=== PATIENT | male | born 1990 | race Caucasian/White ===

== ENCOUNTER → 2020-03-21 08:43 | Outpatient (CLI) | payer BC, SELFPAY ==
[2020-03-21 09:42] LABS: Add Manual Diff / Slide Review NO; Basophils Absolute Auto 100 /uL (0-100); Basophils Percent Auto 0.9 % (0-2); Eosinophils Absolute Auto 200 /uL (0-450); Eosinophils Percent Auto 3.5 % (2-4); Hematocrit 43.3 % (41-53); Hemoglobin 15.2 g/dL (13.5-17.5); Lymphocytes Absolute Auto 1100 /uL (1100-4500); Lymphocytes Percent Auto 18.5 % (25-40); Mean Corpuscular Hemoglobin 37.6 PG (26-34); Mean Corpuscular Volume 107.4 fL (80-100); Monocytes Absolute Auto 700 /uL (0-900); Monocytes Percent Auto 11.7 % (3-14); Neutrophils Absolute Auto 3900 /uL (1500-7000); Neutrophils Percent Auto 65.4 % (50-75); Platelet Count 156 X10^3/uL (150-400); Red Blood Cell Count 4.04 X10^6/uL (4.5-5.9); Red Cell Distribution Width 13.5 % (11.6-14.8); White Blood Cell Count 5.9 X10^3/uL (4.5-11.0)
[2020-03-21 10:09] LABS: BUN Creatinine Ratio 12.2 (6-22); Blood Urea Nitrogen 10 mg/dL (9-20); Calcium 9.3 mg/dL (8.4-10.2); Carbon Dioxide 30 mmol/L (22-32); Chloride 101 mmol/L (98-107); Cholesterol 219 mg/dL (140-199); Estimated Glomerular Filt Rate > 60.0 mL/min (>60); Glucose 102 mg/dL (70-100); HDL Cholesterol 70 mg/dL (40-60); HEMOLYSIS < 15 (0-50); LDL Cholesterol Calculated 72 mg/dL (<100); Potassium 3.9 mmol/L (3.4-5.1); Sodium 139 mmol/L (137-145); Triglycerides 386 mg/dL (35-150)
[2020-03-21 10:27] LABS: Free T3, Triiodothyronine Free 3.93 pg/mL (2.77-5.27); Free T4, Direct Thyroxine 0.91 ng/dL (0.78-2.19)
[2020-03-21 10:41] LABS: Thyroid Stimulating Hormone 2.36 uIU/mL (0.47-4.68)
== END ==
PROVIDERS: PCP Family Medicine; Referring Provider Family Medicine; Visit Provider Family Medicine
DX: R53.83 Other fatigue (principal); R63.5 Abnormal weight gain; Z82.49 Family history of ischemic heart disease and other diseases of the circulatory system; Z83.49 Family history of other endocrine, nutritional and metabolic diseases
CPT/HCPCS: 36415; 80048; 80061; 84439; 84443; 84481; 85025

== ENCOUNTER → 2021-04-03 11:36 | Outpatient (CLI) | payer OTHER, SELFPAY ==
--- NOTE | 2021-04-03 11:40 | DI.RAD.S_ITS ---
PROCEDURE: XR CHEST 2V INDICATIONS: tachycardia TECHNIQUE: 2 views of the chest were acquired. COMPARISON: None. FINDINGS: Surgical changes and devices: None. Lungs and pleura: Lungs are clear. No pleural effusions or pneumothorax. Mediastinum: Mediastinal contours are normal. Heart size is normal. Bones and chest wall: No suspicious bony abnormalities. Soft tissues appear unremarkable. IMPRESSION: No acute cardiopulmonary abnormality. Dictated by: Jase Guaman M.D. on 04/03/2021 at 12:03 Approved by: Jase Guaman M.D. on 04/03/2021 at 12:04
[2021-04-03 13:15] LABS: Add Manual Diff / Slide Review NO; Basophils Absolute Auto 0 /uL (0-100); Basophils Percent Auto 0.3 % (0-2); Eosinophils Absolute Auto 100 /uL (0-450); Eosinophils Percent Auto 0.5 % (2-4); Hemoglobin 9.1 g/dL (13.5-17.5); Lymphocytes Absolute Auto 1400 /uL (1100-4500); Lymphocytes Percent Auto 11.9 % (25-40); Mean Corpuscular HGB Conc 33.7 % (30-36); Mean Corpuscular Hemoglobin 39.7 PG (26-34); Mean Corpuscular Volume 117.9 fL (80-100); Monocytes Absolute Auto 1000 /uL (0-900); Monocytes Percent Auto 8.4 % (3-14); Neutrophils Absolute Auto 9300 /uL (1500-7000); Neutrophils Percent Auto 78.9 % (50-75); Platelet Count 218 X10^3/uL (150-400); Red Blood Cell Count 2.29 X10^6/uL (4.5-5.9); Red Cell Distribution Width 17.4 % (11.6-14.8); White Blood Cell Count 11.7 X10^3/uL (4.5-11.0)
[2021-04-03 13:20] LABS: Hemoglobin A1C% w Est Avg Glu 5.2 % (4.0-6.0)
[2021-04-03 13:49] LABS: Macrocytosis 3+
[2021-04-03 13:50] LABS: Anisocytosis 2+; Creatine Kinase 64 U/L (55-170)
[2021-04-03 14:02] LABS: Troponin I < 0.012 ng/mL (0.01-0.034)
[2021-04-03 14:05] LABS: Alanine Aminotransferase 43 IU/L (<50); Albumin 3.4 g/dL (3.5-5.0); Albumin Globulin Ratio 1.2 (1.0-2.8); Alkaline Phosphatase 275 U/L (38-126); Aspartate Aminotransferase 153 IU/L (17-59); BUN Creatinine Ratio 11.7 (6-22); Bilirubin Total 1.3 mg/dL (0.2-1.3); Blood Urea Nitrogen 7 mg/dL (9-20); Calcium 8.6 mg/dL (8.4-10.2); Carbon Dioxide 25 mmol/L (22-32); Chloride 90 mmol/L (98-107); Cholesterol 141 mg/dL (140-199); Estimated Glomerular Filt Rate > 60.0 mL/min (>60); Globulin 2.8 g/dL (1.7-4.1); Glucose 92 mg/dL (70-100); HDL Cholesterol 27 mg/dL (40-60); HEMOLYSIS < 15 (0-50); LDL Cholesterol Calculated 80 mg/dL (<100); Potassium 4.1 mmol/L (3.4-5.1); Sodium 130 mmol/L (137-145); Total Protein 6.2 g/dL (6.3-8.2); Triglycerides 171 mg/dL (35-150)
[2021-04-03 14:15] LABS: HEMOLYSIS < 15 (0-50); Iron 203 ug/dL (49-181)
[2021-04-03 14:22] LABS: TSH w/ Reflex to FT4 5.95 uIU/mL (0.47-4.68)
[2021-04-03 14:26] LABS: Total Iron Binding Capacity 244 ug/dL (261-462); Transferrin 163 mg/dL (206-381)
[2021-04-03 14:28] LABS: Percent Iron Saturation 83 % (20-50)
[2021-04-03 14:40] LABS: Vitamin B12 Reflex MMA if <400 334 pg/mL (239-931)
[2021-04-03 14:51] LABS: Free T4, Direct Thyroxine 1.43 ng/dL (0.78-2.19)
[2021-04-03 15:24] LABS: Folate 1.5 ng/mL (2.76-20.0)
[2021-04-03 15:52] LABS: Microalbumin Urine Random 3.9 mg/dL (0-1.6)
[2021-04-03 16:27] LABS: Creatinine Urine Random 827.7 mg/dL; Microalbumi Creatinin Ratio Ur 4.7 ug/mg CR (<30)
[2021-04-03 16:49] LABS: Vitamin D 25 Hydroxy (D3) < 12.8 ng/mL (30.0-100.0)
[2021-04-06 16:08] LABS: Methylmalonic Acid,Serum 168 nmol/L (0-378)
== END ==
PROVIDERS: PCP Family Medicine; Referring Provider Family Medicine; Visit Provider Family Medicine
DX: R00.0 Tachycardia, unspecified (principal); E78.1 Pure hyperglyceridemia; R53.83 Other fatigue; R60.0 Localized edema; R63.5 Abnormal weight gain; Z82.49 Family history of ischemic heart disease and other diseases of the circulatory system
CPT/HCPCS: 36415; 71046; 80053; 80061; 82043; 82306; 82550; 82570; 82607; 82746; 83036; 83540; 83550; 83921; 84439; 84443; 84484; 85025

== ENCOUNTER 2021-04-07 23:47 | Emergency (ER) | payer OTHER, SELFPAY ==
[2021-04-07 23:55] VITALS: PULSE 115; O2SAT 97
--- NOTE | 2021-04-07 23:56 | ED.WEAKNESS ---
HPI - Weakness General Chief complaint: Abdominal Pain Stated complaint: abdomin/legs swollen x5 days Time Seen by Provider: 04/07/21 23:51 History of Present Illness HPI Narrative: 30-year-old male daily smoker with history of heavy alcohol abuse presents for evaluation of 40 lb weight gain over the past few weeks to months including worsening swelling in both legs and now his abdomen over the past few days. He is not dizzy nor weak or lightheaded. He denies any chest pain but is becoming short of breath with exertion. He denies any orthopnea,. He had been drinking 8-10 alcoholic drinks daily for quite some time. He saw primary care provider a few days ago was told he needs to stop drinking. He did stop drinking and has had no withdrawal type symptoms. Multiple labs, chest x-ray and echocardiogram were ordered as an outpatient, patient was given emergency department return precautions and is here tonight due to the increasing swelling in his abdomen. He has no abdominal pain or nausea or vomiting. He denies any jaundice. He has had no vomiting or diarrhea. He was found to have an elevated heart rate at about 115 in the office the other day, he states that his resting heart rate is usually at least 100. He denies any recent travel, injuries, history of blood clot. Related Data Previous Rx's Medication Instructions Recorded fluoxetine 20 mg capsule (Prozac) 20 mg PO DAILY #60 cap 04/03/21 furosemide 40 mg tablet (Lasix) 40 mg PO DAILY #7 tab 04/08/21 Allergies Allergy/AdvReac Type Severity Reaction Status Date / Time No Known Drug Allergies Allergy Unverified 03/29/20 15:48 Review of Systems Review of Systems Narrative: GENERAL: Denies chills, fatigue, malaise, fever, sweats. HEENT: Denies sinus pain, ear pain, sore throat, difficulty swallowing, dizziness. RESPIRATORY: Denies dyspnea, cough, wheezing, hemoptysis, sputum. CARDIOVASCULAR: See HP GASTROINTESTINAL: Denies nausea, vomiting, abdominal pain, diarrhea, constipation, melena. : Denies dysuria, frequency, incontinence, hematuria, urinary retention. MUSCULOSKELETAL: denies weakness, joint pain, or bony pain SKIN: Denies rash, skin lesions, or other NEUROLOGIC: Denies weakness, headache, numbness, change in speech, confusion, seizures, incoordination. PSYCHIATRIC: No concerning psychosocial issues. 12 point review of systems is negative except for those stated above Patient History Medical History Family history of heart disease in male family member before age 55 Family history of hypothyroidism Fatigue Hypertriglyceridemia without hypercholesterolemia Megaloblastic anemia due to alcoholism Weight gain Family History Father Hypertension Hyperlipidemia CAD (coronary artery disease) of artery bypass graft Mother Hypothyroid Social History Smoking Status: Current every day smoker Smoking Status: Current every day smoker Exam Narrative Exam Narrative: GENERAL: [30 year old patient appears stated age. Well-developed patient, in mild distress. GCS 15, no confusion HEAD: Atraumatic. Normocephalic. EYES: Pupils equal round and reactive. Extraocular motions intact. No scleral icterus. No injection or drainage. ENT: Nose without bleeding, purulent drainage. Throat without erythema, tonsillar hypertrophy or exudate. Airway patent. NECK: Trachea midline. Non tender CARDIOVASCULAR: Regular rate and rhythm without murmurs, gallops, or rubs. RESPIRATORY: Clear to auscultation. Breath sounds equal bilaterally. No wheezes, rales, or rhonchi. GASTROINTESTINAL: Abdomen soft, non-tender, distended abdomen, no caput medusa, no erythema or warmth, no obvious fluid wave EXTREMITIES: 2+ pitting edema bilateral lower extremities BACK: Nontender without deformity or crepitance. No flank tenderness. NEURO: AOx3. SKIN: No rash or erythema of visible areas Initial Vital Signs Initial Vital Signs: Vital Signs Pulse Rate 115 H 04/07/21 23:55 Pulse Oximetry 97 04/07/21 23:55 Course Orders Ordered: ED Orders 04/07/21 23:57 EKG-12 Lead Stat 04/07/21 23:59 Complete Blood Count AUTO DIFF Stat Comprehensive Metabolic Panel Stat D Dimer Stat Magnesium Stat NT-proBNP (BNP-Adult 18+) Stat Prothrombin Time INR Stat Troponin & CK Cardiac Panel Stat 04/08/21 00:14 US abdomen limited Stat 04/08/21 00:15 Acetaminophen Stat 04/08/21 00:56 US periph venous low extrem bi Stat 04/08/21 01:05 Hepatitis Acute Panel Stat 04/08/21 01:38 CT abdomen pelvis w con Stat CT angio chest PE protocol Stat Vital Signs Vital signs: Vital Signs - 8 hr 04/07/21 23:55 04/07/21 23:57 04/08/21 00:02 Temperature 99.0 F Pulse Rate 115 H 113 H 110 H Respiratory Rate 20 Blood Pressure 159/88 H Pulse Oximetry 97 100 96 04/08/21 00:30 04/08/21 01:00 04/08/21 01:30 Temperature Pulse Rate 107 H 104 H 104 H Respiratory Rate Blood Pressure Pulse Oximetry 92 97 95 04/08/21 02:03 04/08/21 02:04 04/08/21 02:30 Temperature Pulse Rate 107 H 105 H 105 H Respiratory Rate Blood Pressure 147/71 H 136/62 Pulse Oximetry 98 97 95 04/08/21 03:00 04/08/21 03:30 04/08/21 04:00 Temperature Pulse Rate 98 H 98 H 98 H Respiratory Rate Blood Pressure 136/69 149/68 H 149/85 H Pulse Oximetry 94 92 92 MDM - Weakness Lab Data Result diagrams: 04/07/21 23:59 04/07/21 23:59 Labs: Lab Results 04/07/21 04/07/21 04/07/21 Range/Units 23:59 23:59 23:59 WBC 12.9 H (4.5-11.0) X10^3/uL RBC 2.30 L (4.5-5.9) X10^6/uL Hgb 9.0 L (13.5-17.5) g/dL Hct 27.2 L (41-53) % MCV 118.3 H (80-100) fL MCH 39.4 H (26-34) PG MCHC 33.3 (30-36) % RDW 17.4 H (11.6-14.8) % Plt Count 228 (150-400) X10^3/uL Neut % (Auto) Not Reportable Lymph % (Auto) Not Reportable [place] % (Auto) Not Reportable Eos % (Auto) Not Reportable Baso % (Auto) Not Reportable Lymph # (Auto) Not Reportable [place] # (Auto) Not Reportable Baso # (Auto) Not Reportable Total Counted 100 Seg Neutrophils % 73.0 H (38-70) % Band Neutrophils % 1.0 L (3-7) % Lymphocytes % (Manual) 15.0 L (25-45) % Monocytes % (Manual) 6.0 (2-11) % Eosinophils % (Manual) 4.0 (2-4) % Basophils % (Manual) 1.0 (0-1) % Neutrophils # (Manual) 9546 H (5865-2609) /uL RBC Morphology See below Polychromasia 1+ H Hypochromasia 1+ H Anisocytosis 2+ H Macrocytosis 3+ H Schistocytes 1+ H PT (10.1-12.7) SECONDS INR (0.9-1.3) D-Dimer 928 H (<230) ng/mL Sodium 132 L (137-145) mmol/L Potassium 3.8 (3.4-5.1) mmol/L Chloride 93 L (98-107) mmol/L Carbon Dioxide 32 (22-32) mmol/L BUN 6 L (9-20) mg/dL Creatinine 0.59 L (0.66-1.25) mg/dL Estimated GFR > 60.0 (>60) mL/min BUN/Creatinine Ratio 10.2 (6-22) Glucose 109 H (70-100) mg/dL Calcium 8.3 L (8.4-10.2) mg/dL Magnesium 1.7 (1.6-2.3) mg/dL Total Bilirubin 0.8 (0.2-1.3) mg/dL AST 202 H (17-59) IU/L ALT 50 H (<50) IU/L Alkaline Phosphatase 328 H (38-126) U/L Total Creatine Kinase 73 (55-170) U/L CK-MB (CK-2) TNP CK-MB (CK-2) Rel Index TNP Troponin I < 0.012 (0.01-0.034) ng/mL NT-Pro-B Natriuret Pep 177 H (<125) pg/mL Total Protein 6.3 (6.3-8.2) g/dL Albumin 3.2 L (3.5-5.0) g/dL Globulin 3.1 (1.7-4.1) g/dL Albumin/Globulin Ratio 1.0 (1.0-2.8) Acetaminophen (10-30) ug/mL 04/07/21 04/07/21 Range/Units 23:59 23:59 WBC (4.5-11.0) X10^3/uL RBC (4.5-5.9) X10^6/uL Hgb (13.5-17.5) g/dL Hct (41-53) % MCV (80-100) fL MCH (26-34) PG MCHC (30-36) % RDW (11.6-14.8) % Plt Count (150-400) X10^3/uL Neut % (Auto) Lymph % (Auto) [place] % (Auto) Eos % (Auto) Baso % (Auto) Lymph # (Auto) [place] # (Auto) Baso # (Auto) Total Counted Seg Neutrophils % (38-70) % Band Neutrophils % (3-7) % Lymphocytes % (Manual) (25-45) % Monocytes % (Manual) (2-11) % Eosinophils % (Manual) (2-4) % Basophils % (Manual) (0-1) % Neutrophils # (Manual) (3429-7192) /uL RBC Morphology Polychromasia Hypochromasia Anisocytosis Macrocytosis Schistocytes PT 14.7 H (10.1-12.7) SECONDS INR 1.3 (0.9-1.3) D-Dimer (<230) ng/mL Sodium (137-145) mmol/L Potassium (3.4-5.1) mmol/L Chloride (98-107) mmol/L Carbon Dioxide (22-32) mmol/L BUN (9-20) mg/dL Creatinine (0.66-1.25) mg/dL Estimated GFR (>60) mL/min BUN/Creatinine Ratio (6-22) Glucose (70-100) mg/dL Calcium (8.4-10.2) mg/dL Magnesium (1.6-2.3) mg/dL Total Bilirubin (0.2-1.3) mg/dL AST (17-59) IU/L ALT (<50) IU/L Alkaline Phosphatase (38-126) U/L Total Creatine Kinase (55-170) U/L CK-MB (CK-2) CK-MB (CK-2) Rel Index Troponin I (0.01-0.034) ng/mL NT-Pro-B Natriuret Pep (<125) pg/mL Total Protein (6.3-8.2) g/dL Albumin (3.5-5.0) g/dL Globulin (1.7-4.1) g/dL Albumin/Globulin Ratio (1.0-2.8) Acetaminophen < 10 L (10-30) ug/mL Imaging Data US - abdomen: Radiologist Impression: [address] [address] Ultrasound Report Signed Patient: Antonio Verma MR#: [id number] : 1990 Acct:[id number] Age/Sex: 30 / M Date of Service: 04/08/21 Loc: ED Accession Number: [id number] ?? Procedure: US abdomen limited Ordering Provider: Tamir Bell D.O. PROCEDURE:? US ABDOMEN LIMITED ? INDICATIONS:? abdominal distension, liver failure ? TECHNIQUE:? Real-time scanning was performed of the abdominal and retroperitoneal organs, with image documentation.? ? COMPARISON:? None. ? FINDINGS:? ? Liver:? Hepatic parenchymal echotexture is increased consistent with hepatic steatosis or cirrhosis.? The liver is enlarged measuring 27 centimeters.? The main portal vein is not well visualized. ? Gallbladder:? There is sludge in the gallbladder.? No wall thickening? ? Biliary ducts:? Intrahepatic biliary ducts are not well seen however there is no biliary ductal dilatation identified. ? Pancreas:? Not visualized. ? Miscellaneous:? Trace ascites ? ? IMPRESSION:? 1. Hepatomegaly and hepatic steatosis versus cirrhosis. 2. Trace ascites. 3. Gallbladder sludge with no evidence of acute cholecystitis.? Dictated by: Prabhakar Coreas M.D. on 04/08/2021 at 1:58 ? ? Approved by: Prabhakar Coreas M.D. on 04/08/2021 at 2:01? US - DVT: Radiologist Impression: [address] [address] Ultrasound Report Signed Patient: Antonio Verma MR#: [id number] : 1990 Acct:[id number] Age/Sex: 30 / M Date of Service: 04/08/21 Loc: ED Accession Number: [id number] ?? Procedure: US periph venous low extrem bi Ordering Provider: Pinole,Tamir D.O. PROCEDURE:? US PERIPH VENOUS LOW EXTREM BI ? INDICATIONS:? swelling, critical D dimer ? TECHNIQUE:? Real-time imaging, as well as color and pulse Doppler interrogation, were performed of the deep veins of both legs from the inguinal ligament to the popliteal fossa.? ? COMPARISON:? None. ? FINDINGS:? ? Right: The common femoral, femoral and popliteal veins are normally compressible, and free of intraluminal thrombus.? Color and pulse Doppler demonstrate normal phasic intravascular flow.? There is normal augmentation response to distal compression maneuver.? A 5.5 x 2.9 x 1.4 centimeter Beckford cyst is seen. ? Left: The common femoral, femoral and popliteal veins are normally compressible, and free of intraluminal thrombus.? Color and pulse Doppler demonstrate normal phasic intravascular flow.? There is normal augmentation response to distal compression maneuver.? A 2.3 x 3.5 x 0.9 centimeter Beckford cyst is seen. ? ? IMPRESSION:? No DVT in the lower extremities bilaterally. ? ? Dictated by: Prabhakar Coreas M.D. on 04/08/2021 at 2:01 ? ? Approved by: Prabhakar Coreas M.D. on 04/08/2021 at 2:03 ? MDM Narrative Medical decision making narrative: Multiple diagnoses considered including alcoholic liver disease, alcoholic cardiomyopathy versus pulmonary embolism versus DVTs versus other. Patient is slowly worsening but shows no sign of respiratory distress. He has no abdominal pain and abdomen is soft. Labs would suggest liver disease, imaging shows very mild ascites and evidence of liver disease. D-dimer was critically elevated, bilateral lower extremity DVT studies are negative and there is no obvious evidence of a large central clot on imaging, though admittedly it is not a perfect study. That being said, patient not having pain or shortness of breath in the department. Patient is given a short course of diuretic, extensive return precautions and questions have been answered to his apparent satisfaction Discharge Plan Departure Patient Disposition: Home Clinical Impression: Cirrhosis of liver with ascites Qualifiers: Hepatic cirrhosis type: alcoholic cirrhosis Qualified Code(s): K70.31 - Alcoholic cirrhosis of liver with ascites Edema Qualifiers: Edema type: unspecified Qualified Code(s): R60.9 - Edema, unspecified Instructions: Cirrhosis, Edema Activity Restrictions/Additional Instructions: *You have been diagnosed with [abdominal swelling and lower extremity swelling, likely related to liver damage from alcohol abuse. No evidence of bowel obstruction, pneumonia, blood clot or other *What to do: *Please continue to take your regular medications as directed. [ x] New medication prescriptions sent to your pharmacy: [ [facility]] [ ] New medication written as a paper prescription [ ] No new medications given *Please follow up with your primary care provider in 2-3 days, call for an appointment. Let them know you were seen in the Emergency Department and that we ask that you be seen in follow up. We will electronically transmit a record of today's note if your PCP is in our system *If you do not have a primary care provider please contact the [facility] Resource line at [phone]. They will ask some questions about your medical history and help get you set up with a doctor in the community. *Return to Emergency Department if you should have any new, worsening or concerning symptoms, such as [fever greater than 101 F, shaking chills, worsening pain, persistent vomiting or other bothersome symptoms] Prescriptions: New furosemide [Lasix] 40 mg tablet 40 mg PO DAILY Qty: 7 RF: 0 No Action fluoxetine [Prozac] 20 mg capsule 20 mg PO DAILY Qty: 60 RF: 0 Referrals: Faustino Chamberlain MD [Primary Care Provider] -
[2021-04-07 23:57] VITALS: BP 159/88; PULSE 113; RESP 20; TEMP 37.2; O2SAT 100; BMI 42.1
[2021-04-08] VITALS (10 sets, daily range): BP systolic 136–149; BP diastolic 62–85; PULSE 98–110; O2SAT 92–98
--- NOTE | 2021-04-08 00:14 | DI.US.S_ITS ---
PROCEDURE: US ABDOMEN LIMITED INDICATIONS: abdominal distension, liver failure TECHNIQUE: Real-time scanning was performed of the abdominal and retroperitoneal organs, with image documentation. COMPARISON: None. FINDINGS: Liver: Hepatic parenchymal echotexture is increased consistent with hepatic steatosis or cirrhosis. The liver is enlarged measuring 27 centimeters. The main portal vein is not well visualized. Gallbladder: There is sludge in the gallbladder. No wall thickening Biliary ducts: Intrahepatic biliary ducts are not well seen however there is no biliary ductal dilatation identified. Pancreas: Not visualized. Miscellaneous: Trace ascites IMPRESSION: 1. Hepatomegaly and hepatic steatosis versus cirrhosis. 2. Trace ascites. 3. Gallbladder sludge with no evidence of acute cholecystitis. Dictated by: Prabhakar Coreas M.D. on 04/08/2021 at 1:58 Approved by: Prabhakar Coreas M.D. on 04/08/2021 at 2:01
[2021-04-08 00:16] LABS: Hematocrit 27.2 % (41-53); Mean Corpuscular HGB Conc 33.3 % (30-36); Mean Corpuscular Hemoglobin 39.4 PG (26-34); Mean Corpuscular Volume 118.3 fL (80-100); Platelet Count 228 X10^3/uL (150-400); Red Cell Distribution Width 17.4 % (11.6-14.8); White Blood Cell Count 12.9 X10^3/uL (4.5-11.0)
[2021-04-08 00:19] LABS: Add Manual Diff / Slide Review YES; INR 1.3 (0.9-1.3); Prothrombin Time 14.7 SECONDS (10.1-12.7)
[2021-04-08 00:24] LABS: Alanine Aminotransferase 50 IU/L (<50); Albumin 3.2 g/dL (3.5-5.0); Alkaline Phosphatase 328 U/L (38-126); Aspartate Aminotransferase 202 IU/L (17-59); BUN Creatinine Ratio 10.2 (6-22); Bilirubin Total 0.8 mg/dL (0.2-1.3); Blood Urea Nitrogen 6 mg/dL (9-20); Calcium 8.3 mg/dL (8.4-10.2); Carbon Dioxide 32 mmol/L (22-32); Chloride 93 mmol/L (98-107); Creatine Kinase 73 U/L (55-170); Estimated Glomerular Filt Rate > 60.0 mL/min (>60); Globulin 3.1 g/dL (1.7-4.1); Glucose 109 mg/dL (70-100); HEMOLYSIS < 15 (0-50); Magnesium 1.7 mg/dL (1.6-2.3); Potassium 3.8 mmol/L (3.4-5.1); Sodium 132 mmol/L (137-145); Total Protein 6.3 g/dL (6.3-8.2)
[2021-04-08 00:32] LABS: D Dimer 928 ng/mL (<230)
[2021-04-08 00:36] LABS: NT-proBNP (BNP-Adult 18+) 177 pg/mL (<125); Troponin I < 0.012 ng/mL (0.01-0.034)
[2021-04-08 00:46] LABS: Acetaminophen < 10 ug/mL (10-30)
--- NOTE | 2021-04-08 00:56 | DI.US.S_ITS ---
PROCEDURE: US PERIPH VENOUS LOW EXTREM BI INDICATIONS: swelling, critical D dimer TECHNIQUE: Real-time imaging, as well as color and pulse Doppler interrogation, were performed of the deep veins of both legs from the inguinal ligament to the popliteal fossa. COMPARISON: None. FINDINGS: Right: The common femoral, femoral and popliteal veins are normally compressible, and free of intraluminal thrombus. Color and pulse Doppler demonstrate normal phasic intravascular flow. There is normal augmentation response to distal compression maneuver. A 5.5 x 2.9 x 1.4 centimeter Beckford cyst is seen. Left: The common femoral, femoral and popliteal veins are normally compressible, and free of intraluminal thrombus. Color and pulse Doppler demonstrate normal phasic intravascular flow. There is normal augmentation response to distal compression maneuver. A 2.3 x 3.5 x 0.9 centimeter Beckford cyst is seen. IMPRESSION: No DVT in the lower extremities bilaterally. Dictated by: Prabhakar Coreas M.D. on 04/08/2021 at 2:01 Approved by: Prabhakar Coreas M.D. on 04/08/2021 at 2:03
--- NOTE | 2021-04-08 01:38 | DI.CT.S_ITS ---
PROCEDURE: CT ABDOMEN PELVIS W CON INDICATIONS: abominal pain, swelling, acute liver failure TECHNIQUE: After the administration of oral and IV contrast, axial sections were acquired from the lung bases to the pubic symphysis. Coronal and sagittal reformats were performed. For radiation dose reduction, the following was used: automated exposure control, adjustment of mA and/or kV according to patient size. COMPARISON: [facility], CT, CT ANGIO CHEST PE PROTOCOL, 04/08/2021, 1:49. FINDINGS: Image quality: Excellent. Lung bases: Minimally displaced right posterior lateral 8th rib fracture, acute. Robust callus formation about right posterior 10th rib fracture. Left posterior 11th rib fracture with callus formation and nonunion. No pleural effusion. Subcarinal adenopathy seen. Heart: No significant findings. ABDOMEN: Liver: Liver is enlarged. Hepatic steatosis. No focal lesion seen. Gallbladder: Mildly distended. Suspect trace sludge. Biliary ducts: Unremarkable. Pancreas: No peripancreatic fluid collection. Spleen: Enlarged measuring at 15.3 cm in craniocaudal dimension, (14/64). Adrenal Glands: No nodule. Kidneys and Ureters: No hydronephrosis. Stomach and Bowel: Stomach, small bowel loops, and colon are unremarkable. A few colonic diverticuli. The appendix is not dilated. Peritoneum: Small volume of ascites. No pneumoperitoneum. Ventral Wall: No hernia. Lower abdominal wall/pannus skin thickening. Abdominal Nodes: Mildly enlarged retroperitoneal lymph nodes. -Intra-aortic caval node measuring 1.1 cm, (12/55). -Left periaortic node measuring 1 cm, (12/51). Vessels: Aorta and inferior vena cava are normal in size. Small paraesophageal varices, (12/18). The splenic vein is prominent measuring 1.3 cm. Possible recannulization of the periumbilical vein. PELVIS: Pelvic Organs: Unremarkable. Bladder: Within normal limits. Pelvic Nodes: No enlarged lymph nodes. Miscellaneous: No inguinal hernias are seen. Bones: No compression fracture. Rib fractures as described above. IMPRESSION: 1. Hepatosplenomegaly. Paraesophageal varices. Possible recannulization of the periumbilical vein. These findings are concerning for portal hypertension. Diffuse hepatic steatosis and possible underlying cirrhosis. 2. Mildly distended gallbladder. Suspect gallbladder sludge. 3. Small volume of ascites. No bowel obstruction. 4. Small retroperitoneal lymph nodes. 5. Mild stranding in the pericolonic fat. This could be seen in pericolonic edema, portal enteropathy or other colitis or less likely diverticulitis. This report is concordant with the overnight preliminary interpretation. Dictated by: Hang Marino M.D. on 04/08/2021 at 8:01 Approved by: Hang Marino M.D. on 04/08/2021 at 8:14
--- NOTE | 2021-04-08 01:38 | DI.CT.S_ITS ---
PROCEDURE: CT ANGIO CHEST PE PROTOCOL INDICATIONS: Shortness of breath, critical D Dimer, tachycardia TECHNIQUE: After the administration of intravenous contrast, 2 mm thick sections acquired from the pulmonary apices to the posterior costophrenic angles. 3-dimensional maximum intensity projection (MIP) coronal and sagittal reformats were then acquired through the thorax. For radiation dose reduction, the following was used: automated exposure control, adjustment of mA and/or kV according to patient size. COMPARISON: None. FINDINGS: Image quality: Good. Bolus timing suboptimal for evaluation of the distal pulmonary arteries. Pulmonary arteries: Pulmonary arteries are normal in size, and demonstrate no intraluminal filling defects to suggest central pulmonary embolism. Lungs and pleura: Minimal dependent atelectasis. Right middle lobe subpleural pulmonary nodule measuring 0.4 cm, (5/128). No consolidation. No pleural effusions or pneumothorax. Central and peripheral airways are patent. Mediastinum: Heart size is normal, without pericardial effusion. Mildly enlarged mediastinal lymph nodes. Right upper paratracheal node measuring 1.3 cm in short axis diameter, (4/23). Subcarinal node measuring 1.1 cm, (4/68). Thoracic aorta is normal in caliber and enhancement. Esophagus is normal in caliber, without hiatal hernia. Bones and chest wall: No suspicious bony lesions. Acute right 8th rib fracture with minimal displacement, (). Right posterior 10th rib fracture with robust callus formation likely chronic. Thyroid gland is unremarkable. No axillary or supraclavicular adenopathy. Gynecomastia. Abdomen: Please see separately dictated same day CT abdomen and pelvis. Abdominal ascites. Hepatic steatosis. IMPRESSION: 1. Suboptimal opacification of the pulmonary arteries. No central pulmonary embolism. 2. No significant acute airspace opacity. 3. Acute right 8th rib fracture. 4. Mediastinal adenopathy is indeterminate. -Consider follow-up CT chest with IV contrast. Please see separately dictated same day CT abdomen and pelvis. This report is concordant with the overnight preliminary interpretation. Dictated by: Hang Marino M.D. on 04/08/2021 at 7:49 Approved by: Hang Marino M.D. on 04/08/2021 at 8:00
[2021-04-08 01:54] LABS: Anisocytosis 2+; Polychromasia 1+
[2021-04-08 01:55] LABS: Macrocytosis 3+; Schistocytes 1+
[2021-04-08 01:56] LABS: Hypochromasia 1+
[2021-04-08 01:58] LABS: Neutrophils Absolute Manual 9546 /uL (3000-5900); Total Cells Counted 100
[2021-04-09 01:07] LABS: HBsAg Screen Negative (Negative); Hepatitis A Antibody IgM Negative (Negative); Hepatitis B Core Antibody IgM Negative (Negative); Hepatitis C Antibody <0.1 s/co ratio (0.0-0.9)
== END 2021-04-08 04:16 | disposition home or self-care (01) ==
PROVIDERS: Emergency Provider Emergency Medicine; PCP Family Medicine
DX: K70.31 Alcoholic cirrhosis of liver with ascites (principal); R60.9 Edema, unspecified; R06.02 Shortness of breath; R07.9 Chest pain, unspecified
CPT/HCPCS: 36415; 71275; 74177; 76705; 80053; 80074; 80329; 82550; 83735; 83880; 84484; 85007; 85025; 85379; 85610; 93005; 93010; 93970; 99284; 99285; G0480; Q9967

== ENCOUNTER → 2021-04-11 08:34 | Outpatient (CLI) | payer OTHER, SELFPAY ==
[2021-04-11 09:10] LABS: Add Manual Diff / Slide Review NO; Basophils Absolute Auto 100 /uL (0-100); Basophils Percent Auto 0.4 % (0-2); Eosinophils Absolute Auto 100 /uL (0-450); Hemoglobin 10.2 g/dL (13.5-17.5); Lymphocytes Absolute Auto 900 /uL (1100-4500); Lymphocytes Percent Auto 7.6 % (25-40); Mean Corpuscular HGB Conc 32.8 % (30-36); Mean Corpuscular Hemoglobin 38.7 PG (26-34); Mean Corpuscular Volume 117.8 fL (80-100); Monocytes Absolute Auto 1300 /uL (0-900); Monocytes Percent Auto 10.5 % (3-14); Neutrophils Absolute Auto 9800 /uL (1500-7000); Neutrophils Percent Auto 80.5 % (50-75); Platelet Count 248 X10^3/uL (150-400); Red Blood Cell Count 2.63 X10^6/uL (4.5-5.9); Red Cell Distribution Width 16.6 % (11.6-14.8); White Blood Cell Count 12.1 X10^3/uL (4.5-11.0)
[2021-04-11 09:38] LABS: Anisocytosis 1+; Poikilocytosis 1+
[2021-04-11 09:50] LABS: Alanine Aminotransferase 41 IU/L (<50); Albumin 3.4 g/dL (3.5-5.0); Albumin Globulin Ratio 1.1 (1.0-2.8); Alkaline Phosphatase 353 U/L (38-126); Aspartate Aminotransferase 129 IU/L (17-59); BUN Creatinine Ratio 9.8 (6-22); Bilirubin Total 0.9 mg/dL (0.2-1.3); Blood Urea Nitrogen 6 mg/dL (9-20); Calcium 8.7 mg/dL (8.4-10.2); Carbon Dioxide 31 mmol/L (22-32); Chloride 94 mmol/L (98-107); Estimated Glomerular Filt Rate > 60.0 mL/min (>60); Glucose 102 mg/dL (70-100); HEMOLYSIS < 15 (0-50); Sodium 134 mmol/L (137-145); Total Protein 6.4 g/dL (6.3-8.2)
== END ==
PROVIDERS: PCP Family Medicine; Referring Provider Family Medicine; Visit Provider Family Medicine
DX: R00.0 Tachycardia, unspecified (principal); D53.1 Other megaloblastic anemias, not elsewhere classified; R79.89 Other specified abnormal findings of blood chemistry
CPT/HCPCS: 36415; 80053; 85025

== ENCOUNTER → 2021-06-09 13:48 | Outpatient (CLI) | payer OTHER, SELFPAY ==
[2021-06-09 14:22] LABS: Hemoglobin 7.3 g/dL (13.5-17.5); Mean Corpuscular HGB Conc 33.6 % (30-36); Mean Corpuscular Hemoglobin 35.8 PG (26-34); Mean Corpuscular Volume 106.5 fL (80-100); Platelet Count 284 X10^3/uL (150-400); Red Blood Cell Count 2.04 X10^6/uL (4.5-5.9); Red Cell Distribution Width 15.4 % (11.6-14.8)
[2021-06-09 14:23] LABS: Add Manual Diff / Slide Review YES; Hematocrit 21.8 % (41-53)
[2021-06-09 14:39] LABS: Ammonia (NH3) 67 umol/L (9-30)
[2021-06-09 14:40] LABS: Alanine Aminotransferase 80 IU/L (<50); Albumin Globulin Ratio 0.8 (1.0-2.8); Alkaline Phosphatase 309 U/L (38-126); Aspartate Aminotransferase 182 IU/L (17-59); BUN Creatinine Ratio 5.3 (6-22); Bilirubin Total 10.7 mg/dL (0.2-1.3); Blood Urea Nitrogen 29 mg/dL (9-20); Carbon Dioxide 26 mmol/L (22-32); Chloride 88 mmol/L (98-107); Estimated Glomerular Filt Rate 12.3 mL/min (>60); Glucose 98 mg/dL (70-100); HEMOLYSIS < 15 (0-50); Potassium 4.4 mmol/L (3.4-5.1); Sodium 125 mmol/L (137-145)
[2021-06-09 14:49] LABS: Erythrocyte Sedimentation Rate 107 MM/HR (0-15)
[2021-06-09 15:15] LABS: Ferritin 56 ng/mL (18-464); TSH w/ Reflex to FT4 6.98 uIU/mL (0.47-4.68)
[2021-06-09 15:26] LABS: Anisocytosis 1+; Macrocytosis 1+; Neutrophils Absolute Manual 14910 /uL (3000-5900); Total Cells Counted 100
[2021-06-09 15:28] LABS: Poikilocytosis 1+; Target Cells 1+
[2021-06-09 15:46] LABS: Folate 15.6 ng/mL (2.76-20.0)
[2021-06-09 15:57] LABS: Free T4, Direct Thyroxine 2.08 ng/dL (0.78-2.19)
[2021-06-09 16:09] LABS: Vitamin D 25 Hydroxy (D3) 51.5 ng/mL (30.0-100.0)
== END ==
PROVIDERS: PCP Family Medicine; Referring Provider Family Medicine; Visit Provider Family Medicine
DX: D53.1 Other megaloblastic anemias, not elsewhere classified (principal); R00.0 Tachycardia, unspecified; R79.89 Other specified abnormal findings of blood chemistry; R17 Unspecified jaundice; R18.8 Other ascites
CPT/HCPCS: 36415; 80053; 82140; 82306; 82728; 82746; 84439; 84443; 85007; 85025; 85651

== ENCOUNTER 2021-06-09 15:23 | Emergency (ER) | payer OTHER, SELFPAY ==
[2021-06-09] VITALS (17 sets, daily range): BP systolic 77–115; BP diastolic 42–55; PULSE 101–114; RESP 20–26; TEMP 36.3; O2SAT 93–99
--- NOTE | 2021-06-09 15:38 | DI.US.S_ITS ---
PROCEDURE: US ABDOMEN COMPLETE INDICATIONS: liver and renal failure TECHNIQUE: Real-time scanning was performed of the abdominal and retroperitoneal organs, with image documentation. COMPARISON: None. FINDINGS: Liver: The liver appears enlarged measuring at least 21 centimeters in transverse dimension. Markedly increased hepatic parenchymal echogenicity with coarsened hepatic echotexture and possible contour nodularity. Findings are suggestive of severe hepatic steatosis with possible superimposed yet hepatitis or another form of infectious/inflammatory hepatitis. Early cirrhotic change cannot be strictly excluded. The degree of steatosis limits evaluation of the liver. Gallbladder: Not well seen due to the degree of steatosis. No shadowing gallstone. No evidence of wall thickening or pericholecystic fluid. There may be small volume sludge in the gallbladder. Biliary ducts: Normal caliber. Pancreas: Visualized portions of the pancreas are sonographically normal. Spleen: Enlarged measuring at least 16 centimeters in maximum dimension. Kidneys: Grossly normal Aorta: Poorly visualized. Iliacs: Poorly visualized. IVC: Poorly visualized. Miscellaneous: No free abdominal fluid. IMPRESSION: Limited exam due to body habitus and hepatomegaly with severe steatosis and possible superimposed hepatitis or other diffuse hepatocellular disorder. No findings of cholelithiasis or cholecystitis. Splenomegaly. Dictated by: Selwyn Baeza M.D. on 06/09/2021 at 15:33 Approved by: Selwyn Baeza M.D. on 06/09/2021 at 15:36
--- NOTE | 2021-06-09 15:39 | DI.RAD.S_ITS ---
PROCEDURE: XR CHEST 1V INDICATIONS: renal/liver failure TECHNIQUE: One view of the chest was acquired. COMPARISON: None. FINDINGS: Surgical changes and devices: None. Lungs and pleura: Lungs are clear. No pleural effusions or pneumothorax. Mediastinum: Mediastinal contours appear normal. Heart size is normal. Bones and chest wall: No suspicious bony lesions. Overlying soft tissues appear unremarkable. IMPRESSION: No acute cardiopulmonary process demonstrated radiographically. Dictated by: Selwyn Baeza M.D. on 06/09/2021 at 15:15 Approved by: Selwyn Baeza M.D. on 06/09/2021 at 15:16
[2021-06-09] MEDS: LIDOCAINE 2% (GLYDO) 6 ML GEL TOP (16:08)
[2021-06-09 16:09] LABS: Ethanol (ETOH) < 10 mg/dL
[2021-06-09] MEDS: SODIUM CHLORIDE 0.9% 1,000 ML 1000 ML IV (16:09)
--- NOTE | 2021-06-09 16:31 | PC.NURSE ---
no urine output when catheter placed. provider aware.
--- NOTE | 2021-06-09 17:02 | ED_ITS ---
HPI - Recheck/Abnormal Lab/Rx <Anay Lujan DO - Last Filed: 06/12/21 13:20> General Chief Complaint: Recheck/Abnormal Lab/Rx Stated Complaint: ABNORMAL BLOOD WORK Time Seen by Provider: 06/09/21 15:37 Source: patient Mode of arrival: Ambulatory Limitations: no limitations History of Present Illness HPI narrative: This is a 30-year-old male comes emergency department sent by his primary care for renal failure and liver failure. Patient has known cirrhosis he states he has been following with his physician. He is on losartan, spironolactone, Lasix and fluoxetine. He quit drinking on May 31. He states before then he was drinking 5-6 [employer] lemonade as well as several glasses of wine daily. Patient states he does smoke. He denies any marijuana or illicit drugs. He had hepatitis testing in March which was negative. Patient states he was contacted because of his lab abnormalities. He states he has actually been feeling a little bit better for the past several days. He has had some decrease in appetite, fluid intake as well as urine output. He has noticed just less urine being made in general he noticed about 3 days ago that his eyes were turning yellow and he was having yellow discoloration of his skin. He denies fevers or chills. No chest pain or pressure. No shortness of breath. He states his abdomen actually feels less bloated than it did before. He has had swelling in his lower extremities but states it has not been worsening. He denies any major surgeries. No allergies to medications. Dr. Chamberlain is his his primary care. Related Data Previous Rx's Medication Instructions Recorded fluoxetine 20 mg capsule (Prozac) 20 mg PO DAILY #60 cap 04/03/21 furosemide 20 mg tablet (Lasix) 20 mg PO DAILY #60 tab 04/11/21 losartan 50 mg tablet 50 mg PO DAILY #90 tab 04/11/21 spironolactone 50 mg tablet 50 mg PO DAILY #60 tab 04/11/21 Allergies Allergy/AdvReac Type Severity Reaction Status Date / Time No Known Drug Allergies Allergy Verified 06/09/21 13:06 Review of Systems <Anay Lujan DO - Last Filed: 06/12/21 13:20> Review of Systems ROS Unobtainable: All systems reviewed & are unremarkable except as noted in HPI and below Patient History <Anay Lujan DO - Last Filed: 06/12/21 13:20> Medical History Abdominal ascites Cirrhosis Esophageal varices Family history of heart disease in male family member before age 55 Family history of hypothyroidism Fatigue Hypertriglyceridemia without hypercholesterolemia Jaundice Megaloblastic anemia due to alcoholism Weight gain Family History Father Hypertension Hyperlipidemia CAD (coronary artery disease) of artery bypass graft Mother Hypothyroid Social History Smoking Status: Current every day smoker Smoking Status: Current every day smoker tobacco type: e-cigarettes alcohol intake frequency: 0-2 drinks per day Substance Use Type: does not use Exam <Anay Lujan DO - Last Filed: 06/12/21 13:20> Narrative Exam Narrative: GEN: Obese male, alert and oriented x 3, patient appears to be in mild distress. Patient is jaundiced. HEENT: Atraumatic, pupils are equal round reactive to light, extraocular movements are intact, scleral icterus present bilaterally, nares are clear, TMs are clear with no fluid, there is no conjunctival pallor. HEART: Regular rate and rhythm without murmur, clicks, rubs. LUNGS:Lungs clear to auscultation, no wheezes, rales, crackles, chest moves symmetrically. Patient has 1+ edema bilateral lower extremities. ABD:bowel sounds normal, soft, patient has habitus consistent with obesity, no fluid wave. Non-tender, no guarding, rebound, rigidity, no masses noted, no hepatosplenomegaly. :No CVA tenderness MSCL: Non-tender, full range of motion, normal gait NEURO:CN 2-12 intact, sensation normal, no asterixis. Normal speech. GCS 15. Initial Vital Signs Initial Vital Signs: Vital Signs Temperature 97.4 F L 06/09/21 15:27 Pulse Rate 111 H 06/09/21 15:27 Respiratory Rate 20 06/09/21 15:27 Blood Pressure 77/42 L 06/09/21 15:27 Pulse Oximetry 96 06/09/21 15:27 <Drake Vee DO - Last Filed: 06/11/21 06:43> Initial Vital Signs Initial Vital Signs: Vital Signs Temperature 97.4 F L 06/09/21 15:27 Pulse Rate 111 H 06/09/21 15:27 Respiratory Rate 20 06/09/21 15:27 Blood Pressure 77/42 L 06/09/21 15:27 Pulse Oximetry 96 06/09/21 15:27 <Hermelindo Whitlock MD - Last Filed: 06/16/21 11:57> Initial Vital Signs Initial Vital Signs: Vital Signs Temperature 97.4 F L 06/09/21 15:27 Pulse Rate 111 H 06/09/21 15:27 Respiratory Rate 20 06/09/21 15:27 Blood Pressure 77/42 L 06/09/21 15:27 Pulse Oximetry 96 06/09/21 15:27 Course <Anay Lujan DO - Last Filed: 06/12/21 13:20> Orders Ordered: Discontinued Medications Furosemide (Furosemide 40 Mg/4 Ml Vial) 40 mg IV NOW ONE Stop: 06/10/21 19:03 Last Admin: 06/10/21 19:20 Dose: 40 mg Documented by: BARRY Sodium Chloride (Normal Saline 0.9%) 1,000 mls @ 1,000 mls/hr IV BOLUS ONE Stop: 06/09/21 16:36 Last Infusion: 06/09/21 18:42 Dose: 0 mls/hr Documented by: Admin: 06/09/21 16:09 Dose: 1,000 mls/hr Documented by: JANY Sodium Chloride (Normal Saline 0.9%) 1,000 mls @ 250 mls/hr IV CONT JOANNE Last Infusion: 06/10/21 17:07 Dose: 0 mls/hr Documented by: Infusion: 06/10/21 13:12 Dose: 250 mls/hr Documented by: Admin: 06/10/21 10:22 Dose: 250 mls/hr Documented by: Infusion: 06/10/21 06:53 Dose: 250 mls/hr Documented by: Admin: 06/10/21 02:53 Dose: 250 mls/hr Documented by: Infusion: 06/10/21 02:53 Dose: 150 mls/hr Documented by: Admin: 06/09/21 20:35 Dose: 150 mls/hr Documented by: JANY Octreotide Acetate 500 mcg/ (Sodium Chloride) 101 mls @ 10.1 mls/hr IV CONT JOANNE; Protocol Last Infusion: 06/11/21 08:22 Dose: 0 mcg/hr, 0 mls/hr Documented by: Admin: 06/11/21 07:00 Dose: 50 mcg/hr, 10.1 mls/hr Documented by: BETITO Lidocaine HCl (Lidocaine 2% (Glydo) 6 Ml Gel) 6 ml TOP NOW ONE Stop: 06/09/21 16:04 Last Admin: 06/09/21 16:08 Dose: 6 ml Documented by: JANY Octreotide Acetate (Octreotide 100 Mcg/Ml Vial) 50 mcg IV NOW ONE Stop: 06/11/21 06:24 Last Admin: 06/11/21 06:47 Dose: 50 mcg Documented by: BETITO Pantoprazole Sodium (Pantoprazole 40 Mg Vial) 80 mg IV NOW ONE Stop: 06/11/21 06:24 Last Admin: 06/11/21 06:47 Dose: 80 mg Documented by: BETITO Reevaluation(s) Reevaluation #1: Updated patient on his findings. His meld score is 37. We discussed that if he is continuing to not make any urine output he needs to be transferred for dial ysis. And with his meld score he needs to see of hepatology. Vital Signs Vital signs: Vital Signs - 8 hr 06/10/21 23:00 06/10/21 23:42 06/10/21 23:44 Temperature Pulse Rate 112 H 108 H 108 H Respiratory Rate 21 22 Blood Pressure 87/47 L Blood Pressure [Left Arm] Pulse Oximetry 96 93 94 06/11/21 00:01 06/11/21 00:28 06/11/21 00:30 Temperature 98.0 F Pulse Rate 111 H 106 H 110 H Respiratory Rate 18 Blood Pressure Blood Pressure [Left Arm] 87/47 L Pulse Oximetry 94 98 95 06/11/21 01:04 06/11/21 01:30 06/11/21 02:00 Temperature Pulse Rate 107 H 110 H 108 H Respiratory Rate Blood Pressure Blood Pressure [Left Arm] Pulse Oximetry 96 94 97 06/11/21 02:30 06/11/21 03:29 06/11/21 06:16 Temperature 98.1 F Pulse Rate 105 H 109 H 109 H Respiratory Rate 18 27 H Blood Pressure 105/52 L 93/48 L Blood Pressure [Left Arm] Pulse Oximetry 96 98 <Drake Vee DO - Last Filed: 06/11/21 06:43> Orders Ordered: Discontinued Medications Furosemide (Furosemide 40 Mg/4 Ml Vial) 40 mg IV NOW ONE Stop: 06/10/21 19:03 Last Admin: 06/10/21 19:20 Dose: 40 mg Documented by: BARRY Sodium Chloride (Normal Saline 0.9%) 1,000 mls @ 1,000 mls/hr IV BOLUS ONE Stop: 06/09/21 16:36 Last Infusion: 06/09/21 18:42 Dose: 0 mls/hr Documented by: Admin: 06/09/21 16:09 Dose: 1,000 mls/hr Documented by: JANY Sodium Chloride (Normal Saline 0.9%) 1,000 mls @ 250 mls/hr IV CONT JOANNE Last Infusion: 06/10/21 17:07 Dose: 0 mls/hr Documented by: Infusion: 06/10/21 13:12 Dose: 250 mls/hr Documented by: Admin: 06/10/21 10:22 Dose: 250 mls/hr Documented by: Infusion: 06/10/21 06:53 Dose: 250 mls/hr Documented by: Admin: 06/10/21 02:53 Dose: 250 mls/hr Documented by: Infusion: 06/10/21 02:53 Dose: 150 mls/hr Documented by: Admin: 06/09/21 20:35 Dose: 150 mls/hr Documented by: JANY Octreotide Acetate 500 mcg/ (Sodium Chloride) 101 mls @ 10.1 mls/hr IV CONT JOANNE; Protocol Last Infusion: 06/11/21 08:22 Dose: 0 mcg/hr, 0 mls/hr Documented by: Admin: 06/11/21 07:00 Dose: 50 mcg/hr, 10.1 mls/hr Documented by: BETITO Lidocaine HCl (Lidocaine 2% (Glydo) 6 Ml Gel) 6 ml TOP NOW ONE Stop: 06/09/21 16:04 Last Admin: 06/09/21 16:08 Dose: 6 ml Documented by: JANY Octreotide Acetate (Octreotide 100 Mcg/Ml Vial) 50 mcg IV NOW ONE Stop: 06/11/21 06:24 Last Admin: 06/11/21 06:47 Dose: 50 mcg Documented by: BETITO Pantoprazole Sodium (Pantoprazole 40 Mg Vial) 80 mg IV NOW ONE Stop: 06/11/21 06:24 Last Admin: 06/11/21 06:47 Dose: 80 mg Documented by: BETITO Vital Signs Vital signs: Vital Signs - 8 hr 06/10/21 23:00 06/10/21 23:42 06/10/21 23:44 Temperature Pulse Rate 112 H 108 H 108 H Respiratory Rate 21 22 Blood Pressure 87/47 L Blood Pressure [Left Arm] Pulse Oximetry 96 93 94 06/11/21 00:01 06/11/21 00:28 06/11/21 00:30 Temperature 98.0 F Pulse Rate 111 H 106 H 110 H Respiratory Rate 18 Blood Pressure Blood Pressure [Left Arm] 87/47 L Pulse Oximetry 94 98 95 06/11/21 01:04 06/11/21 01:30 06/11/21 02:00 Temperature Pulse Rate 107 H 110 H 108 H Respiratory Rate Blood Pressure Blood Pressure [Left Arm] Pulse Oximetry 96 94 97 06/11/21 02:30 06/11/21 03:29 06/11/21 06:16 Temperature 98.1 F Pulse Rate 105 H 109 H 109 H Respiratory Rate 18 27 H Blood Pressure 105/52 L 93/48 L Blood Pressure [Left Arm] Pulse Oximetry 96 98 <Hermelindo Whitlock MD - Last Filed: 06/16/21 11:57> Course Course Narrative: June 10, 2021 at 7:34 a.m.. Sign-out from Dr. Vee, at this time labs from this morning have improved. Still awaiting for availability for bed and any surrounding hospital that has Nephrology and Gastroenterology given patient's renal and liver abnormalities. Patient understands at this time during pandemic beds are very scarce and staff shortness. Patient receiving normal saline 250 mL an hour. Has Rodriguez catheter in place. Does have slow urine output. 8:44 a.m.. Updated patient and still on waiting list for transfer. Labs from this morning have improved from yesterday. They understand the long wait for bed availability 5:35 p.m.. No new issues. Fluids have been discontinued. Has decrease in urine output. Dark urine in the Rodriguez bag. Patient has had increased swelling in the lower extremities 6:00 p.m.. Sign out to Dr. Vee, still waiting for placement. Fluids have been discontinued. Orders Ordered: Discontinued Medications Furosemide (Furosemide 40 Mg/4 Ml Vial) 40 mg IV NOW ONE Stop: 06/10/21 19:03 Last Admin: 06/10/21 19:20 Dose: 40 mg Documented by: BARRY Sodium Chloride (Normal Saline 0.9%) 1,000 mls @ 1,000 mls/hr IV BOLUS ONE Stop: 06/09/21 16:36 Last Infusion: 06/09/21 18:42 Dose: 0 mls/hr Documented by: Admin: 06/09/21 16:09 Dose: 1,000 mls/hr Documented by: JANY Sodium Chloride (Normal Saline 0.9%) 1,000 mls @ 250 mls/hr IV CONT JOANNE Last Infusion: 06/10/21 17:07 Dose: 0 mls/hr Documented by: Infusion: 06/10/21 13:12 Dose: 250 mls/hr Documented by: Admin: 06/10/21 10:22 Dose: 250 mls/hr Documented by: Infusion: 06/10/21 06:53 Dose: 250 mls/hr Documented by: Admin: 06/10/21 02:53 Dose: 250 mls/hr Documented by: Infusion: 06/10/21 02:53 Dose: 150 mls/hr Documented by: Admin: 06/09/21 20:35 Dose: 150 mls/hr Documented by: JANY Octreotide Acetate 500 mcg/ (Sodium Chloride) 101 mls @ 10.1 mls/hr IV CONT JOANNE; Protocol Last Infusion: 06/11/21 08:22 Dose: 0 mcg/hr, 0 mls/hr Documented by: Admin: 06/11/21 07:00 Dose: 50 mcg/hr, 10.1 mls/hr Documented by: BETITO Lidocaine HCl (Lidocaine 2% (Glydo) 6 Ml Gel) 6 ml TOP NOW ONE Stop: 06/09/21 16:04 Last Admin: 06/09/21 16:08 Dose: 6 ml Documented by: JANY Octreotide Acetate (Octreotide 100 Mcg/Ml Vial) 50 mcg IV NOW ONE Stop: 06/11/21 06:24 Last Admin: 06/11/21 06:47 Dose: 50 mcg Documented by: BETITO Pantoprazole Sodium (Pantoprazole 40 Mg Vial) 80 mg IV NOW ONE Stop: 06/11/21 06:24 Last Admin: 06/11/21 06:47 Dose: 80 mg Documented by: BETITO Vital Signs Vital signs: Vital Signs - 8 hr 06/10/21 23:00 06/10/21 23:42 06/10/21 23:44 Temperature Pulse Rate 112 H 108 H 108 H Respiratory Rate 21 22 Blood Pressure 87/47 L Blood Pressure [Left Arm] Pulse Oximetry 96 93 94 06/11/21 00:01 06/11/21 00:28 06/11/21 00:30 Temperature 98.0 F Pulse Rate 111 H 106 H 110 H Respiratory Rate 18 Blood Pressure Blood Pressure [Left Arm] 87/47 L Pulse Oximetry 94 98 95 06/11/21 01:04 06/11/21 01:30 06/11/21 02:00 Temperature Pulse Rate 107 H 110 H 108 H Respiratory Rate Blood Pressure Blood Pressure [Left Arm] Pulse Oximetry 96 94 97 06/11/21 02:30 06/11/21 03:29 06/11/21 06:16 Temperature 98.1 F Pulse Rate 105 H 109 H 109 H Respiratory Rate 18 27 H Blood Pressure 105/52 L 93/48 L Blood Pressure [Left Arm] Pulse Oximetry 96 98 MDM - Recheck/Abnormal Lab/Rx <Anay Lujan, - Last Filed: 06/12/21 13:20> Lab Data Result diagrams: 06/10/21 19:07 06/10/21 18:27 Labs: Lab Results 06/09/21 06/09/21 06/09/21 Range/Units 14:00 15:45 15:45 WBC (4.5-11.0) X10^3/uL RBC (4.5-5.9) X10^6/uL Hgb (13.5-17.5) g/dL Hct (41-53) % MCV (80-100) fL MCH (26-34) PG MCHC (30-36) % RDW (11.6-14.8) % Plt Count (150-400) X10^3/uL Neut % (Auto) Lymph % (Auto) [place] % (Auto) Eos % (Auto) Baso % (Auto) Lymph # (Auto) [place] # (Auto) Baso # (Auto) Total Counted Seg Neutrophils % (38-70) % Band Neutrophils % (3-7) % Lymphocytes % (Manual) (25-45) % Monocytes % (Manual) (2-11) % Neutrophils # (Manual) (2417-5014) /uL RBC Morphology Polychromasia Macrocytosis Tear Drop Cells Stomatocytes PT (10.1-12.7) SECONDS INR (0.9-1.3) APTT (26.4-36.2) SECONDS Sodium (137-145) mmol/L Potassium (3.4-5.1) mmol/L Chloride (98-107) mmol/L Carbon Dioxide (22-32) mmol/L BUN (9-20) mg/dL Creatinine (0.66-1.25) mg/dL Estimated GFR (>60) mL/min BUN/Creatinine Ratio (6-22) Glucose (70-100) mg/dL Calcium (8.4-10.2) mg/dL Total Bilirubin (0.2-1.3) mg/dL Conjugated Bilirubin (0.0-0.3) md/dL Unconjugated Bilirubin (0.0-1.1) mg/dL AST (17-59) IU/L ALT (<50) IU/L Alkaline Phosphatase (38-126) U/L Ammonia (9-30) umol/L Total Protein (6.3-8.2) g/dL Albumin (3.5-5.0) g/dL Globulin (1.7-4.1) g/dL Albumin/Globulin Ratio (1.0-2.8) Lipase (23-300) U/L Urine Color Urine Appearance Urine pH (4.5-8.0) Ur Specific [place] (1.000-1.035) Urine Protein (Negative) Urine Glucose (UA) (Negative) g/dL Urine Ketones (NEGATIVE) Urine Occult Blood (Negative) Urine Nitrate Urine Bilirubin (NEGATIVE) Ur Bilirubin Confirm (Negative) Urine Urobilinogen (0.2) E.U./dL Ur Leukocyte Esterase (NEGATIVE) Urine RBC (0-5/HPF) Urine WBC (0-5/HPF) Amorphous Sediment Urine Bacteria (None) Ur Culture Indicated? Micro UA Comment Ur Random Sodium (30-90) mmol/L Urine Creatinine mg/dL U Opiates 300ng/mL cut (Negative) Ur Oxycodone Screen (Negative) Urine Methadone Screen (Negative) Acetaminophen (10-30) ug/mL Ur Barbiturates Screen (Negative) U Tricyclic Antidepress (Negative) Ur Phencyclidine Scrn (Negative) Ur Amphetamines Screen (Negative) U Methamphetamines Scrn (Negative) Ur MDMA Scrn (Ecstasy) (Negative) U Benzodiazepines Scrn (Negative) Urine Cocaine Screen (Negative) U Marijuana (THC) Screen (Negative) Ethyl Alcohol < 10 ( - 10) mg/dL SARS-CoV-2 (PCR) Negative (Negative) Hepatitis A IgM Ab Negative (Negative) Hep Bs Antigen Negative (Negative) Hep B Core IgM Ab Negative (Negative) Hepatitis C Antibody <0.1 (0.0-0.9) s/co ratio Hep C Ab Signal/Cutoff Comment (.) Blood Type Antibody Screen Crossmatch 06/09/21 06/09/21 06/09/21 Range/Units 15:45 15:45 15:45 WBC (4.5-11.0) X10^3/uL RBC (4.5-5.9) X10^6/uL Hgb (13.5-17.5) g/dL Hct (41-53) % MCV (80-100) fL MCH (26-34) PG MCHC (30-36) % RDW (11.6-14.8) % Plt Count (150-400) X10^3/uL Neut % (Auto) Lymph % (Auto) [place] % (Auto) Eos % (Auto) Baso % (Auto) Lymph # (Auto) [place] # (Auto) Baso # (Auto) Total Counted Seg Neutrophils % (38-70) % Band Neutrophils % (3-7) % Lymphocytes % (Manual) (25-45) % Monocytes % (Manual) (2-11) % Neutrophils # (Manual) (6225-2620) /uL RBC Morphology Polychromasia Macrocytosis Tear Drop Cells Stomatocytes PT 20.6 H (10.1-12.7) SECONDS INR 1.8 H (0.9-1.3) APTT 48 H (26.4-36.2) SECONDS Sodium (137-145) mmol/L Potassium (3.4-5.1) mmol/L Chloride (98-107) mmol/L Carbon Dioxide (22-32) mmol/L BUN (9-20) mg/dL Creatinine (0.66-1.25) mg/dL Estimated GFR (>60) mL/min BUN/Creatinine Ratio (6-22) Glucose (70-100) mg/dL Calcium (8.4-10.2) mg/dL Total Bilirubin (0.2-1.3) mg/dL Conjugated Bilirubin (0.0-0.3) md/dL Unconjugated Bilirubin (0.0-1.1) mg/dL AST (17-59) IU/L ALT (<50) IU/L Alkaline Phosphatase (38-126) U/L Ammonia (9-30) umol/L Total Protein (6.3-8.2) g/dL Albumin (3.5-5.0) g/dL Globulin (1.7-4.1) g/dL Albumin/Globulin Ratio (1.0-2.8) Lipase 144 (23-300) U/L Urine Color Urine Appearance Urine pH (4.5-8.0) Ur Specific [place] (1.000-1.035) Urine Protein (Negative) Urine Glucose (UA) (Negative) g/dL Urine Ketones (NEGATIVE) Urine Occult Blood (Negative) Urine Nitrate Urine Bilirubin (NEGATIVE) Ur Bilirubin Confirm (Negative) Urine Urobilinogen (0.2) E.U./dL Ur Leukocyte Esterase (NEGATIVE) Urine RBC (0-5/HPF) Urine WBC (0-5/HPF) Amorphous Sediment Urine Bacteria (None) Ur Culture Indicated? Micro UA Comment Ur Random Sodium (30-90) mmol/L Urine Creatinine mg/dL U Opiates 300ng/mL cut (Negative) Ur Oxycodone Screen (Negative) Urine Methadone Screen (Negative) Acetaminophen < 10 L (10-30) ug/mL Ur Barbiturates Screen (Negative) U Tricyclic Antidepress (Negative) Ur Phencyclidine Scrn (Negative) Ur Amphetamines Screen (Negative) U Methamphetamines Scrn (Negative) Ur MDMA Scrn (Ecstasy) (Negative) U Benzodiazepines Scrn (Negative) Urine Cocaine Screen (Negative) U Marijuana (THC) Screen (Negative) Ethyl Alcohol ( - 10) mg/dL SARS-CoV-2 (PCR) (Negative) Hepatitis A IgM Ab (Negative) Hep Bs Antigen (Negative) Hep B Core IgM Ab (Negative) Hepatitis C Antibody (0.0-0.9) s/co ratio Hep C Ab Signal/Cutoff (.) Blood Type Antibody Screen Crossmatch 06/09/21 06/09/21 06/09/21 Range/Units 22:24 22:24 22:24 WBC (4.5-11.0) X10^3/uL RBC (4.5-5.9) X10^6/uL Hgb (13.5-17.5) g/dL Hct (41-53) % MCV (80-100) fL MCH (26-34) PG MCHC (30-36) % RDW (11.6-14.8) % Plt Count (150-400) X10^3/uL Neut % (Auto) Lymph % (Auto) [place] % (Auto) Eos % (Auto) Baso % (Auto) Lymph # (Auto) [place] # (Auto) Baso # (Auto) Total Counted Seg Neutrophils % (38-70) % Band Neutrophils % (3-7) % Lymphocytes % (Manual) (25-45) % Monocytes % (Manual) (2-11) % Neutrophils # (Manual) (4860-0726) /uL RBC Morphology Polychromasia Macrocytosis Tear Drop Cells Stomatocytes PT (10.1-12.7) SECONDS INR (0.9-1.3) APTT (26.4-36.2) SECONDS Sodium 126 L (137-145) mmol/L Potassium 4.4 (3.4-5.1) mmol/L Chloride 91 L (98-107) mmol/L Carbon Dioxide 28 (22-32) mmol/L BUN 32 H (9-20) mg/dL Creatinine 5.75 H (0.66-1.25) mg/dL Estimated GFR 11.6 L (>60) mL/min BUN/Creatinine Ratio 5.6 L (6-22) Glucose 90 (70-100) mg/dL Calcium 6.7 L (8.4-10.2) mg/dL Total Bilirubin (0.2-1.3) mg/dL Conjugated Bilirubin (0.0-0.3) md/dL Unconjugated Bilirubin (0.0-1.1) mg/dL AST (17-59) IU/L ALT (<50) IU/L Alkaline Phosphatase (38-126) U/L Ammonia (9-30) umol/L Total Protein (6.3-8.2) g/dL Albumin (3.5-5.0) g/dL Globulin (1.7-4.1) g/dL Albumin/Globulin Ratio (1.0-2.8) Lipase (23-300) U/L Urine Color Shayy Urine Appearance Cloudy Urine pH 6.5 (4.5-8.0) Ur Specific [place] 1.025 (1.000-1.035) Urine Protein 3+ H (Negative) Urine Glucose (UA) Trace H (Negative) g/dL Urine Ketones Trace H (NEGATIVE) Urine Occult Blood 3+ H (Negative) Urine Nitrate Not Reportable Urine Bilirubin 3+ H (NEGATIVE) Ur Bilirubin Confirm Positive H (Negative) Urine Urobilinogen 1.0 (0.2) E.U./dL Ur Leukocyte Esterase 2+ H (NEGATIVE) Urine RBC 10-30/hpf H (0-5/HPF) Urine WBC 5-10/hpf H (0-5/HPF) Amorphous Sediment 3+ Urine Bacteria None seen (None) Ur Culture Indicated? Specimen cultured Micro UA Comment * Ur Random Sodium 21 L (30-90) mmol/L Urine Creatinine 432.1 mg/dL U Opiates 300ng/mL cut (Negative) Ur Oxycodone Screen (Negative) Urine Methadone Screen (Negative) Acetaminophen (10-30) ug/mL Ur Barbiturates Screen (Negative) U Tricyclic Antidepress (Negative) Ur Phencyclidine Scrn (Negative) Ur Amphetamines Screen (Negative) U Methamphetamines Scrn (Negative) Ur MDMA Scrn (Ecstasy) (Negative) U Benzodiazepines Scrn (Negative) Urine Cocaine Screen (Negative) U Marijuana (THC) Screen (Negative) Ethyl Alcohol ( - 10) mg/dL SARS-CoV-2 (PCR) (Negative) Hepatitis A IgM Ab (Negative) Hep Bs Antigen (Negative) Hep B Core IgM Ab (Negative) Hepatitis C Antibody (0.0-0.9) s/co ratio Hep C Ab Signal/Cutoff (.) Blood Type Antibody Screen Crossmatch 06/09/21 06/10/21 06/10/21 Range/Units 22:24 06:00 06:00 WBC (4.5-11.0) X10^3/uL RBC (4.5-5.9) X10^6/uL Hgb (13.5-17.5) g/dL Hct (41-53) % MCV (80-100) fL MCH (26-34) PG MCHC (30-36) % RDW (11.6-14.8) % Plt Count (150-400) X10^3/uL Neut % (Auto) Lymph % (Auto) [place] % (Auto) Eos % (Auto) Baso % (Auto) Lymph # (Auto) [place] # (Auto) Baso # (Auto) Total Counted Seg Neutrophils % (38-70) % Band Neutrophils % (3-7) % Lymphocytes % (Manual) (25-45) % Monocytes % (Manual) (2-11) % Neutrophils # (Manual) (5967-9363) /uL RBC Morphology Polychromasia Macrocytosis Tear Drop Cells Stomatocytes PT (10.1-12.7) SECONDS INR (0.9-1.3) APTT (26.4-36.2) SECONDS Sodium 129 L (137-145) mmol/L Potassium 4.2 (3.4-5.1) mmol/L Chloride 93 L (98-107) mmol/L Carbon Dioxide 26 (22-32) mmol/L BUN 34 H (9-20) mg/dL Creatinine 5.05 H (0.66-1.25) mg/dL Estimated GFR 13.4 L (>60) mL/min BUN/Creatinine Ratio 6.7 (6-22) Glucose 94 (70-100) mg/dL Calcium 6.5 L (8.4-10.2) mg/dL Total Bilirubin 9.9 H (0.2-1.3) mg/dL Conjugated Bilirubin 6.1 H (0.0-0.3) md/dL Unconjugated Bilirubin 1.3 H (0.0-1.1) mg/dL AST 148 H (17-59) IU/L ALT 68 H (<50) IU/L Alkaline Phosphatase 261 H (38-126) U/L Ammonia 37 H (9-30) umol/L Total Protein 6.1 L (6.3-8.2) g/dL Albumin 2.6 L (3.5-5.0) g/dL Globulin 3.5 (1.7-4.1) g/dL Albumin/Globulin Ratio 0.7 L (1.0-2.8) Lipase (23-300) U/L Urine Color Urine Appearance Urine pH (4.5-8.0) Ur Specific [place] (1.000-1.035) Urine Protein (Negative) Urine Glucose (UA) (Negative) g/dL Urine Ketones (NEGATIVE) Urine Occult Blood (Negative) Urine Nitrate Urine Bilirubin (NEGATIVE) Ur Bilirubin Confirm (Negative) Urine Urobilinogen (0.2) E.U./dL Ur Leukocyte Esterase (NEGATIVE) Urine RBC (0-5/HPF) Urine WBC (0-5/HPF) Amorphous Sediment Urine Bacteria (None) Ur Culture Indicated? Micro UA Comment Ur Random Sodium (30-90) mmol/L Urine Creatinine mg/dL U Opiates 300ng/mL cut Negative (Negative) Ur Oxycodone Screen Negative (Negative) Urine Methadone Screen Negative (Negative) Acetaminophen (10-30) ug/mL Ur Barbiturates Screen Negative (Negative) U Tricyclic Antidepress Positive H (Negative) Ur Phencyclidine Scrn Negative (Negative) Ur Amphetamines Screen Negative (Negative) U Methamphetamines Scrn Negative (Negative) Ur MDMA Scrn (Ecstasy) Negative (Negative) U Benzodiazepines Scrn Negative (Negative) Urine Cocaine Screen Negative (Negative) U Marijuana (THC) Screen Negative (Negative) Ethyl Alcohol ( - 10) mg/dL SARS-CoV-2 (PCR) (Negative) Hepatitis A IgM Ab (Negative) Hep Bs Antigen (Negative) Hep B Core IgM Ab (Negative) Hepatitis C Antibody (0.0-0.9) s/co ratio Hep C Ab Signal/Cutoff (.) Blood Type Antibody Screen Crossmatch 06/10/21 06/10/21 06/10/21 Range/Units 18:27 18:27 19:07 WBC 17.7 H (4.5-11.0) X10^3/uL RBC 1.59 L (4.5-5.9) X10^6/uL Hgb 5.6 L* (13.5-17.5) g/dL Hct 16.8 L* (41-53) % MCV 105.7 H (80-100) fL MCH 35.6 H (26-34) PG MCHC 33.6 (30-36) % RDW 15.9 H (11.6-14.8) % Plt Count 230 (150-400) X10^3/uL Neut % (Auto) Not Reportable Lymph % (Auto) Not Reportable [place] % (Auto) Not Reportable Eos % (Auto) Not Reportable Baso % (Auto) Not Reportable Lymph # (Auto) Not Reportable [place] # (Auto) Not Reportable Baso # (Auto) Not Reportable Total Counted 100 Seg Neutrophils % 77.0 H (38-70) % Band Neutrophils % 4.0 (3-7) % Lymphocytes % (Manual) 6.0 L (25-45) % Monocytes % (Manual) 13.0 H (2-11) % Neutrophils # (Manual) 47374 H (2994-3413) /uL RBC Morphology See below Polychromasia 2+ H Macrocytosis 1+ H Tear Drop Cells 2+ H Stomatocytes 2+ H PT (10.1-12.7) SECONDS INR (0.9-1.3) APTT (26.4-36.2) SECONDS Sodium 127 L (137-145) mmol/L Potassium 4.3 (3.4-5.1) mmol/L Chloride 94 L (98-107) mmol/L Carbon Dioxide 27 (22-32) mmol/L BUN 37 H (9-20) mg/dL Creatinine 4.48 H (0.66-1.25) mg/dL Estimated GFR 15.4 L (>60) mL/min BUN/Creatinine Ratio 8.3 (6-22) Glucose 112 H (70-100) mg/dL Calcium 6.2 L* (8.4-10.2) mg/dL Total Bilirubin 9.9 H (0.2-1.3) mg/dL Conjugated Bilirubin 6.1 H (0.0-0.3) md/dL Unconjugated Bilirubin 1.2 H (0.0-1.1) mg/dL AST 136 H (17-59) IU/L ALT 60 H (<50) IU/L Alkaline Phosphatase 215 H (38-126) U/L Ammonia (9-30) umol/L Total Protein 5.7 L (6.3-8.2) g/dL Albumin 2.4 L (3.5-5.0) g/dL Globulin 3.3 (1.7-4.1) g/dL Albumin/Globulin Ratio 0.7 L (1.0-2.8) Lipase (23-300) U/L Urine Color Urine Appearance Urine pH (4.5-8.0) Ur Specific [place] (1.000-1.035) Urine Protein (Negative) Urine Glucose (UA) (Negative) g/dL Urine Ketones (NEGATIVE) Urine Occult Blood (Negative) Urine Nitrate Urine Bilirubin (NEGATIVE) Ur Bilirubin Confirm (Negative) Urine Urobilinogen (0.2) E.U./dL Ur Leukocyte Esterase (NEGATIVE) Urine RBC (0-5/HPF) Urine WBC (0-5/HPF) Amorphous Sediment Urine Bacteria (None) Ur Culture Indicated? Micro UA Comment Ur Random Sodium (30-90) mmol/L Urine Creatinine mg/dL U Opiates 300ng/mL cut (Negative) Ur Oxycodone Screen (Negative) Urine Methadone Screen (Negative) Acetaminophen (10-30) ug/mL Ur Barbiturates Screen (Negative) U Tricyclic Antidepress (Negative) Ur Phencyclidine Scrn (Negative) Ur Amphetamines Screen (Negative) U Methamphetamines Scrn (Negative) Ur MDMA Scrn (Ecstasy) (Negative) U Benzodiazepines Scrn (Negative) Urine Cocaine Screen (Negative) U Marijuana (THC) Screen (Negative) Ethyl Alcohol ( - 10) mg/dL SARS-CoV-2 (PCR) (Negative) Hepatitis A IgM Ab (Negative) Hep Bs Antigen (Negative) Hep B Core IgM Ab (Negative) Hepatitis C Antibody (0.0-0.9) s/co ratio Hep C Ab Signal/Cutoff (.) Blood Type O Positive Antibody Screen Negative Crossmatch See Detail 06/10/21 Range/Units 19:07 WBC (4.5-11.0) X10^3/uL RBC (4.5-5.9) X10^6/uL Hgb 5.7 L* (13.5-17.5) g/dL Hct 17.2 L* (41-53) % MCV (80-100) fL MCH (26-34) PG MCHC (30-36) % RDW (11.6-14.8) % Plt Count (150-400) X10^3/uL Neut % (Auto) Lymph % (Auto) [place] % (Auto) Eos % (Auto) Baso % (Auto) Lymph # (Auto) [place] # (Auto) Baso # (Auto) Total Counted Seg Neutrophils % (38-70) % Band Neutrophils % (3-7) % Lymphocytes % (Manual) (25-45) % Monocytes % (Manual) (2-11) % Neutrophils # (Manual) (1383-7194) /uL RBC Morphology Polychromasia Macrocytosis Tear Drop Cells Stomatocytes PT (10.1-12.7) SECONDS INR (0.9-1.3) APTT (26.4-36.2) SECONDS Sodium (137-145) mmol/L Potassium (3.4-5.1) mmol/L Chloride (98-107) mmol/L Carbon Dioxide (22-32) mmol/L BUN (9-20) mg/dL Creatinine (0.66-1.25) mg/dL Estimated GFR (>60) mL/min BUN/Creatinine Ratio (6-22) Glucose (70-100) mg/dL Calcium (8.4-10.2) mg/dL Total Bilirubin (0.2-1.3) mg/dL Conjugated Bilirubin (0.0-0.3) md/dL Unconjugated Bilirubin (0.0-1.1) mg/dL AST (17-59) IU/L ALT (<50) IU/L Alkaline Phosphatase (38-126) U/L Ammonia (9-30) umol/L Total Protein (6.3-8.2) g/dL Albumin (3.5-5.0) g/dL Globulin (1.7-4.1) g/dL Albumin/Globulin Ratio (1.0-2.8) Lipase (23-300) U/L Urine Color Urine Appearance Urine pH (4.5-8.0) Ur Specific [place] (1.000-1.035) Urine Protein (Negative) Urine Glucose (UA) (Negative) g/dL Urine Ketones (NEGATIVE) Urine Occult Blood (Negative) Urine Nitrate Urine Bilirubin (NEGATIVE) Ur Bilirubin Confirm (Negative) Urine Urobilinogen (0.2) E.U./dL Ur Leukocyte Esterase (NEGATIVE) Urine RBC (0-5/HPF) Urine WBC (0-5/HPF) Amorphous Sediment Urine Bacteria (None) Ur Culture Indicated? Micro UA Comment Ur Random Sodium (30-90) mmol/L Urine Creatinine mg/dL U Opiates 300ng/mL cut (Negative) Ur Oxycodone Screen (Negative) Urine Methadone Screen (Negative) Acetaminophen (10-30) ug/mL Ur Barbiturates Screen (Negative) U Tricyclic Antidepress (Negative) Ur Phencyclidine Scrn (Negative) Ur Amphetamines Screen (Negative) U Methamphetamines Scrn (Negative) Ur MDMA Scrn (Ecstasy) (Negative) U Benzodiazepines Scrn (Negative) Urine Cocaine Screen (Negative) U Marijuana (THC) Screen (Negative) Ethyl Alcohol ( - 10) mg/dL SARS-CoV-2 (PCR) (Negative) Hepatitis A IgM Ab (Negative) Hep Bs Antigen (Negative) Hep B Core IgM Ab (Negative) Hepatitis C Antibody (0.0-0.9) s/co ratio Hep C Ab Signal/Cutoff (.) Blood Type Antibody Screen Crossmatch Imaging Data CT scan - abdomen/pelvis: Radiologist's Impression: [place] [address] CT Scan Report Signed Patient: Antonio Verma MR#: [id number] : 1990 Acct:[id number] Age/Sex: 30 / M Date of Service: 06/09/21 Loc: ED Accession Number: [id number] ?? Procedure: CT kidney ureter bladder (KUB) Ordering Provider: Anay Lujan D.O. PROCEDURE:? CT KIDNEY URETER BLADDER (KUB) ? INDICATIONS:? liver/renal failure ? TECHNIQUE:? Axial sections were acquired from the lung bases to the pubic symphysis.? Coronal and sagittal reformats were performed.? For radiation dose reduction, the following was used: ?automated exposure control, adjustment of mA and/or kV according to patient si ze.? ? COMPARISON:? [facility], CT, CT ABDOMEN PELVIS W CON, 04/08/2021, 1:49. ? FINDINGS:? Image quality:? Excellent.? ? Lung bases:? Unremarkable.? ? Heart:? No significant findings. ? URINARY: Kidneys and ureters:? No renal or ureteral calculus or hydronephrosis.? ? Bladder:? The bladder is decompressed by a Rodriguez catheter. ? ABDOMEN: Liver:? The liver is diffusely hypoattenuating and enlarged, measuring up to 26.9 cm and craniocaudal dimension. Gallbladder:? Small amount of hyperdense sludge is seen in the gallbladder fundus.? No pericholecystic inflammatory changes are seen. Biliary ducts:? Unremarkable.? ? Pancreas:? Unremarkable.? ? Spleen:? The spleen is mildly enlarged, measuring up to 16 cm in craniocaudal dimension. Adrenal Glands:? Unremarkable.? ? ? Stomach and Bowel:? A few diverticula are seen in the colon without signs of acute diverticulitis.? No signs of bowel obstruction.? Normal retrocecal appendix. Peritoneum:? No abnormal intraperitoneal fluid.? The previously seen small volume of ascites has resolved.? No free air.? ? Ventral Wall: ? No hernia.? There is mild soft tissue anasarca. Abdominal Nodes:? An anterior aortocaval lymph node again measures 1.1 cm in short axis (48/2).? Left periaortic lymph node measures 0.7 cm in short axis (43/2), previously 1.0 cm.? Additional small retroperitoneal lymph nodes are mildly increased in number. Vessels:? Aorta and inferior vena cava are normal in size.? Paraesophageal varices are noted. ? PELVIS: Pelvic Organs:? Unremarkable.? ? Pelvic Nodes: Unremarkable. Miscellaneous: No inguinal hernias are seen. ? ? ? Bones:? Healing left posterior 10th and 11th rib fractures are noted.? A right posterior 10th rib fracture appears nearly completely healed.? Right posterior 8th rib fracture does not demonstrate significant bridging ossification. ? IMPRESSION:? 1. Hepatomegaly and diffuse hepatic steatosis redemonstrated.? Signs of portal hypertension are again seen including splenomegaly and paraesophageal varices. ? 2. Gallbladder sludge without additional signs of acute cholecystitis. ? 3. Mild colonic diverticulosis. ? 4. Stable to mildly decreased small nonspecific retroperitoneal lymph nodes when compared to the exam from 04/08/2021. ? 5. Bilateral healing rib fractures.? ? Dictated by: Selvin Johnson M.D. on 06/09/2021 at 17:41 ? ? Approved by: Selvin Johnson M.D. on 06/09/2021 at 17:52? Chest x-ray: Radiologist's Impression: Launch?[address] [address] XRay Report Signed Patient: Antonio Verma MR#: [id number] : 1990 Acct:[id number] Age/Sex: 30 / M Date of Service: 06/09/21 Loc: ED Accession Number: [id number] ?? Procedure: XR chest 1V Ordering Provider: Anay uLjan D.O. PROCEDURE:? XR CHEST 1V ? INDICATIONS:? renal/liver failure ? TECHNIQUE:? One view of the chest was acquired.? ? COMPARISON:? None. ? FINDINGS:? ? Surgical changes and devices:? None.? ? Lungs and pleura:? Lungs are clear.? No pleural effusions or pneumothorax.? ? Mediastinum:? Mediastinal contours appear normal.? Heart size is normal.? ? Bones and chest wall:? No suspicious bony lesions.? Overlying soft tissues appear unremarkable.? ? IMPRESSION:? No acute cardiopulmonary process demonstrated radiographically. ? ? Dictated by: Selwyn Baeza M.D. on 06/09/2021 at 15:15 ? ? Approved by: Selwyn Baeza M.D. on 06/09/2021 at 15:16?? MDM Narrative Medical decision making narrative: MELD score is 37. This is a 30-year-old male with known history of cirrhosis secondary to alcohol abuse. He had hepatitis panel in March which was negative. Patient has had repeat labs an outpatient today which show shows a bilirubin of 10.7, AST 182, ALT 80 alk-phos at 3:09 a.m. with a ammonia of 67. Creatinine is 5.4 with normal potassium but a sodium of 125 and a chloride of 88. Patient does have a leukocytosis, hemoglobin of 7 with platelets of 284. Patient's ultrasound was difficult to obtain shows cirrhotic changes but unable to fully visualize the kidneys. CT KUB was obtained and shows hepatomegaly with diffuse hepatic steatosis. Signs of portal hypertension or seen with splenomegaly and paraesophageal varices. Gallbladder sludge without any additional signs of cholecystitis, diverticulitis and small nonspecific retroperitoneal lymph nodes which are stable compared to 04/08/2021. Patient states he quit drinking alcohol on the 31 of May. His alcohol level today is negative. He has been taking losartan, spironolactone Lasix and fluoxetine. He has not had any urine output here in the department and his Rodriguez bulb is visualized on the CT with a decompressed bladder. Patient does not need acute emergent dialysis tonight but will likely needed in the next day or 2. We initiated search for transfer as there are no beds regionally. Patient was given fluids with minimal change. He has been hypotensive but not hypoxic. His mentation has been appropriate. He is accompanied by his who is aware of all of his findings today. Patient was signed out to Dr. Vee while continue to search for placement. Plan for repeat labs, continued monitoring of urine output. <Drake Vee, DO - Last Filed: 06/11/21 06:43> Lab Data Attestation: I reviewed the patient's lab results. Labs: Lab Results 06/09/21 06/09/21 06/09/21 Range/Units 14:00 15:45 15:45 WBC (4.5-11.0) X10^3/uL RBC (4.5-5.9) X10^6/uL Hgb (13.5-17.5) g/dL Hct (41-53) % MCV (80-100) fL MCH (26-34) PG MCHC (30-36) % RDW (11.6-14.8) % Plt Count (150-400) X10^3/uL Neut % (Auto) Lymph % (Auto) [place] % (Auto) Eos % (Auto) Baso % (Auto) Lymph # (Auto) [place] # (Auto) Baso # (Auto) Total Counted Seg Neutrophils % (38-70) % Band Neutrophils % (3-7) % Lymphocytes % (Manual) (25-45) % Monocytes % (Manual) (2-11) % Neutrophils # (Manual) (8320-4642) /uL RBC Morphology Polychromasia Macrocytosis Tear Drop Cells Stomatocytes PT (10.1-12.7) SECONDS INR (0.9-1.3) APTT (26.4-36.2) SECONDS Sodium (137-145) mmol/L Potassium (3.4-5.1) mmol/L Chloride (98-107) mmol/L Carbon Dioxide (22-32) mmol/L BUN (9-20) mg/dL Creatinine (0.66-1.25) mg/dL Estimated GFR (>60) mL/min BUN/Creatinine Ratio (6-22) Glucose (70-100) mg/dL Calcium (8.4-10.2) mg/dL Total Bilirubin (0.2-1.3) mg/dL Conjugated Bilirubin (0.0-0.3) md/dL Unconjugated Bilirubin (0.0-1.1) mg/dL AST (17-59) IU/L ALT (<50) IU/L Alkaline Phosphatase (38-126) U/L Ammonia (9-30) umol/L Total Protein (6.3-8.2) g/dL Albumin (3.5-5.0) g/dL Globulin (1.7-4.1) g/dL Albumin/Globulin Ratio (1.0-2.8) Lipase (23-300) U/L Urine Color Urine Appearance Urine pH (4.5-8.0) Ur Specific [place] (1.000-1.035) Urine Protein (Negative) Urine Glucose (UA) (Negative) g/dL Urine Ketones (NEGATIVE) Urine Occult Blood (Negative) Urine Nitrate Urine Bilirubin (NEGATIVE) Ur Bilirubin Confirm (Negative) Urine Urobilinogen (0.2) E.U./dL Ur Leukocyte Esterase (NEGATIVE) Urine RBC (0-5/HPF) Urine WBC (0-5/HPF) Amorphous Sediment Urine Bacteria (None) Ur Culture Indicated? Micro UA Comment Ur Random Sodium (30-90) mmol/L Urine Creatinine mg/dL U Opiates 300ng/mL cut (Negative) Ur Oxycodone Screen (Negative) Urine Methadone Screen (Negative) Acetaminophen (10-30) ug/mL Ur Barbiturates Screen (Negative) U Tricyclic Antidepress (Negative) Ur Phencyclidine Scrn (Negative) Ur Amphetamines Screen (Negative) U Methamphetamines Scrn (Negative) Ur MDMA Scrn (Ecstasy) (Negative) U Benzodiazepines Scrn (Negative) Urine Cocaine Screen (Negative) U Marijuana (THC) Screen (Negative) Ethyl Alcohol < 10 ( - 10) mg/dL SARS-CoV-2 (PCR) Negative (Negative) Hepatitis A IgM Ab Negative (Negative) Hep Bs Antigen Negative (Negative) Hep B Core IgM Ab Negative (Negative) Hepatitis C Antibody <0.1 (0.0-0.9) s/co ratio Hep C Ab Signal/Cutoff Comment (.) Blood Type Antibody Screen Crossmatch 06/09/21 06/09/21 06/09/21 Range/Units 15:45 15:45 15:45 WBC (4.5-11.0) X10^3/uL RBC (4.5-5.9) X10^6/uL Hgb (13.5-17.5) g/dL Hct (41-53) % MCV (80-100) fL MCH (26-34) PG MCHC (30-36) % RDW (11.6-14.8) % Plt Count (150-400) X10^3/uL Neut % (Auto) Lymph % (Auto) [place] % (Auto) Eos % (Auto) Baso % (Auto) Lymph # (Auto) [place] # (Auto) Baso # (Auto) Total Counted Seg Neutrophils % (38-70) % Band Neutrophils % (3-7) % Lymphocytes % (Manual) (25-45) % Monocytes % (Manual) (2-11) % Neutrophils # (Manual) (2507-8922) /uL RBC Morphology Polychromasia Macrocytosis Tear Drop Cells Stomatocytes PT 20.6 H (10.1-12.7) SECONDS INR 1.8 H (0.9-1.3) APTT 48 H (26.4-36.2) SECONDS Sodium (137-145) mmol/L Potassium (3.4-5.1) mmol/L Chloride (98-107) mmol/L Carbon Dioxide (22-32) mmol/L BUN (9-20) mg/dL Creatinine (0.66-1.25) mg/dL Estimated GFR (>60) mL/min BUN/Creatinine Ratio (6-22) Glucose (70-100) mg/dL Calcium (8.4-10.2) mg/dL Total Bilirubin (0.2-1.3) mg/dL Conjugated Bilirubin (0.0-0.3) md/dL Unconjugated Bilirubin (0.0-1.1) mg/dL AST (17-59) IU/L ALT (<50) IU/L Alkaline Phosphatase (38-126) U/L Ammonia (9-30) umol/L Total Protein (6.3-8.2) g/dL Albumin (3.5-5.0) g/dL Globulin (1.7-4.1) g/dL Albumin/Globulin Ratio (1.0-2.8) Lipase 144 (23-300) U/L Urine Color Urine Appearance Urine pH (4.5-8.0) Ur Specific [place] (1.000-1.035) Urine Protein (Negative) Urine Glucose (UA) (Negative) g/dL Urine Ketones (NEGATIVE) Urine Occult Blood (Negative) Urine Nitrate Urine Bilirubin (NEGATIVE) Ur Bilirubin Confirm (Negative) Urine Urobilinogen (0.2) E.U./dL Ur Leukocyte Esterase (NEGATIVE) Urine RBC (0-5/HPF) Urine WBC (0-5/HPF) Amorphous Sediment Urine Bacteria (None) Ur Culture Indicated? Micro UA Comment Ur Random Sodium (30-90) mmol/L Urine Creatinine mg/dL U Opiates 300ng/mL cut (Negative) Ur Oxycodone Screen (Negative) Urine Methadone Screen (Negative) Acetaminophen < 10 L (10-30) ug/mL Ur Barbiturates Screen (Negative) U Tricyclic Antidepress (Negative) Ur Phencyclidine Scrn (Negative) Ur Amphetamines Screen (Negative) U Methamphetamines Scrn (Negative) Ur MDMA Scrn (Ecstasy) (Negative) U Benzodiazepines Scrn (Negative) Urine Cocaine Screen (Negative) U Marijuana (THC) Screen (Negative) Ethyl Alcohol ( - 10) mg/dL SARS-CoV-2 (PCR) (Negative) Hepatitis A IgM Ab (Negative) Hep Bs Antigen (Negative) Hep B Core IgM Ab (Negative) Hepatitis C Antibody (0.0-0.9) s/co ratio Hep C Ab Signal/Cutoff (.) Blood Type Antibody Screen Crossmatch 06/09/21 06/09/21 06/09/21 Range/Units 22:24 22:24 22:24 WBC (4.5-11.0) X10^3/uL RBC (4.5-5.9) X10^6/uL Hgb (13.5-17.5) g/dL Hct (41-53) % MCV (80-100) fL MCH (26-34) PG MCHC (30-36) % RDW (11.6-14.8) % Plt Count (150-400) X10^3/uL Neut % (Auto) Lymph % (Auto) [place] % (Auto) Eos % (Auto) Baso % (Auto) Lymph # (Auto) [place] # (Auto) Baso # (Auto) Total Counted Seg Neutrophils % (38-70) % Band Neutrophils % (3-7) % Lymphocytes % (Manual) (25-45) % Monocytes % (Manual) (2-11) % Neutrophils # (Manual) (6644-6562) /uL RBC Morphology Polychromasia Macrocytosis Tear Drop Cells Stomatocytes PT (10.1-12.7) SECONDS INR (0.9-1.3) APTT (26.4-36.2) SECONDS Sodium 126 L (137-145) mmol/L Potassium 4.4 (3.4-5.1) mmol/L Chloride 91 L (98-107) mmol/L Carbon Dioxide 28 (22-32) mmol/L BUN 32 H (9-20) mg/dL Creatinine 5.75 H (0.66-1.25) mg/dL Estimated GFR 11.6 L (>60) mL/min BUN/Creatinine Ratio 5.6 L (6-22) Glucose 90 (70-100) mg/dL Calcium 6.7 L (8.4-10.2) mg/dL Total Bilirubin (0.2-1.3) mg/dL Conjugated Bilirubin (0.0-0.3) md/dL Unconjugated Bilirubin (0.0-1.1) mg/dL AST (17-59) IU/L ALT (<50) IU/L Alkaline Phosphatase (38-126) U/L Ammonia (9-30) umol/L Total Protein (6.3-8.2) g/dL Albumin (3.5-5.0) g/dL Globulin (1.7-4.1) g/dL Albumin/Globulin Ratio (1.0-2.8) Lipase (23-300) U/L Urine Color Shayy Urine Appearance Cloudy Urine pH 6.5 (4.5-8.0) Ur Specific [place] 1.025 (1.000-1.035) Urine Protein 3+ H (Negative) Urine Glucose (UA) Trace H (Negative) g/dL Urine Ketones Trace H (NEGATIVE) Urine Occult Blood 3+ H (Negative) Urine Nitrate Not Reportable Urine Bilirubin 3+ H (NEGATIVE) Ur Bilirubin Confirm Positive H (Negative) Urine Urobilinogen 1.0 (0.2) E.U./dL Ur Leukocyte Esterase 2+ H (NEGATIVE) Urine RBC 10-30/hpf H (0-5/HPF) Urine WBC 5-10/hpf H (0-5/HPF) Amorphous Sediment 3+ Urine Bacteria None seen (None) Ur Culture Indicated? Specimen cultured Micro UA Comment * Ur Random Sodium 21 L (30-90) mmol/L Urine Creatinine 432.1 mg/dL U Opiates 300ng/mL cut (Negative) Ur Oxycodone Screen (Negative) Urine Methadone Screen (Negative) Acetaminophen (10-30) ug/mL Ur Barbiturates Screen (Negative) U Tricyclic Antidepress (Negative) Ur Phencyclidine Scrn (Negative) Ur Amphetamines Screen (Negative) U Methamphetamines Scrn (Negative) Ur MDMA Scrn (Ecstasy) (Negative) U Benzodiazepines Scrn (Negative) Urine Cocaine Screen (Negative) U Marijuana (THC) Screen (Negative) Ethyl Alcohol ( - 10) mg/dL SARS-CoV-2 (PCR) (Negative) Hepatitis A IgM Ab (Negative) Hep Bs Antigen (Negative) Hep B Core IgM Ab (Negative) Hepatitis C Antibody (0.0-0.9) s/co ratio Hep C Ab Signal/Cutoff (.) Blood Type Antibody Screen Crossmatch 06/09/21 06/10/21 06/10/21 Range/Units 22:24 06:00 06:00 WBC (4.5-11.0) X10^3/uL RBC (4.5-5.9) X10^6/uL Hgb (13.5-17.5) g/dL Hct (41-53) % MCV (80-100) fL MCH (26-34) PG MCHC (30-36) % RDW (11.6-14.8) % Plt Count (150-400) X10^3/uL Neut % (Auto) Lymph % (Auto) [place] % (Auto) Eos % (Auto) Baso % (Auto) Lymph # (Auto) [place] # (Auto) Baso # (Auto) Total Counted Seg Neutrophils % (38-70) % Band Neutrophils % (3-7) % Lymphocytes % (Manual) (25-45) % Monocytes % (Manual) (2-11) % Neutrophils # (Manual) (4535-3187) /uL RBC Morphology Polychromasia Macrocytosis Tear Drop Cells Stomatocytes PT (10.1-12.7) SECONDS INR (0.9-1.3) APTT (26.4-36.2) SECONDS Sodium 129 L (137-145) mmol/L Potassium 4.2 (3.4-5.1) mmol/L Chloride 93 L (98-107) mmol/L Carbon Dioxide 26 (22-32) mmol/L BUN 34 H (9-20) mg/dL Creatinine 5.05 H (0.66-1.25) mg/dL Estimated GFR 13.4 L (>60) mL/min BUN/Creatinine Ratio 6.7 (6-22) Glucose 94 (70-100) mg/dL Calcium 6.5 L (8.4-10.2) mg/dL Total Bilirubin 9.9 H (0.2-1.3) mg/dL Conjugated Bilirubin 6.1 H (0.0-0.3) md/dL Unconjugated Bilirubin 1.3 H (0.0-1.1) mg/dL AST 148 H (17-59) IU/L ALT 68 H (<50) IU/L Alkaline Phosphatase 261 H (38-126) U/L Ammonia 37 H (9-30) umol/L Total Protein 6.1 L (6.3-8.2) g/dL Albumin 2.6 L (3.5-5.0) g/dL Globulin 3.5 (1.7-4.1) g/dL Albumin/Globulin Ratio 0.7 L (1.0-2.8) Lipase (23-300) U/L Urine Color Urine Appearance Urine pH (4.5-8.0) Ur Specific [place] (1.000-1.035) Urine Protein (Negative) Urine Glucose (UA) (Negative) g/dL Urine Ketones (NEGATIVE) Urine Occult Blood (Negative) Urine Nitrate Urine Bilirubin (NEGATIVE) Ur Bilirubin Confirm (Negative) Urine Urobilinogen (0.2) E.U./dL Ur Leukocyte Esterase (NEGATIVE) Urine RBC (0-5/HPF) Urine WBC (0-5/HPF) Amorphous Sediment Urine Bacteria (None) Ur Culture Indicated? Micro UA Comment Ur Random Sodium (30-90) mmol/L Urine Creatinine mg/dL U Opiates 300ng/mL cut Negative (Negative) Ur Oxycodone Screen Negative (Negative) Urine Methadone Screen Negative (Negative) Acetaminophen (10-30) ug/mL Ur Barbiturates Screen Negative (Negative) U Tricyclic Antidepress Positive H (Negative) Ur Phencyclidine Scrn Negative (Negative) Ur Amphetamines Screen Negative (Negative) U Methamphetamines Scrn Negative (Negative) Ur MDMA Scrn (Ecstasy) Negative (Negative) U Benzodiazepines Scrn Negative (Negative) Urine Cocaine Screen Negative (Negative) U Marijuana (THC) Screen Negative (Negative) Ethyl Alcohol ( - 10) mg/dL SARS-CoV-2 (PCR) (Negative) Hepatitis A IgM Ab (Negative) Hep Bs Antigen (Negative) Hep B Core IgM Ab (Negative) Hepatitis C Antibody (0.0-0.9) s/co ratio Hep C Ab Signal/Cutoff (.) Blood Type Antibody Screen Crossmatch 06/10/21 06/10/21 06/10/21 Range/Units 18:27 18:27 19:07 WBC 17.7 H (4.5-11.0) X10^3/uL RBC 1.59 L (4.5-5.9) X10^6/uL Hgb 5.6 L* (13.5-17.5) g/dL Hct 16.8 L* (41-53) % MCV 105.7 H (80-100) fL MCH 35.6 H (26-34) PG MCHC 33.6 (30-36) % RDW 15.9 H (11.6-14.8) % Plt Count 230 (150-400) X10^3/uL Neut % (Auto) Not Reportable Lymph % (Auto) Not Reportable [place] % (Auto) Not Reportable Eos % (Auto) Not Reportable Baso % (Auto) Not Reportable Lymph # (Auto) Not Reportable [place] # (Auto) Not Reportable Baso # (Auto) Not Reportable Total Counted 100 Seg Neutrophils % 77.0 H (38-70) % Band Neutrophils % 4.0 (3-7) % Lymphocytes % (Manual) 6.0 L (25-45) % Monocytes % (Manual) 13.0 H (2-11) % Neutrophils # (Manual) 88759 H (7242-2585) /uL RBC Morphology See below Polychromasia 2+ H Macrocytosis 1+ H Tear Drop Cells 2+ H Stomatocytes 2+ H PT (10.1-12.7) SECONDS INR (0.9-1.3) APTT (26.4-36.2) SECONDS Sodium 127 L (137-145) mmol/L Potassium 4.3 (3.4-5.1) mmol/L Chloride 94 L (98-107) mmol/L Carbon Dioxide 27 (22-32) mmol/L BUN 37 H (9-20) mg/dL Creatinine 4.48 H (0.66-1.25) mg/dL Estimated GFR 15.4 L (>60) mL/min BUN/Creatinine Ratio 8.3 (6-22) Glucose 112 H (70-100) mg/dL Calcium 6.2 L* (8.4-10.2) mg/dL Total Bilirubin 9.9 H (0.2-1.3) mg/dL Conjugated Bilirubin 6.1 H (0.0-0.3) md/dL Unconjugated Bilirubin 1.2 H (0.0-1.1) mg/dL AST 136 H (17-59) IU/L ALT 60 H (<50) IU/L Alkaline Phosphatase 215 H (38-126) U/L Ammonia (9-30) umol/L Total Protein 5.7 L (6.3-8.2) g/dL Albumin 2.4 L (3.5-5.0) g/dL Globulin 3.3 (1.7-4.1) g/dL Albumin/Globulin Ratio 0.7 L (1.0-2.8) Lipase (23-300) U/L Urine Color Urine Appearance Urine pH (4.5-8.0) Ur Specific [place] (1.000-1.035) Urine Protein (Negative) Urine Glucose (UA) (Negative) g/dL Urine Ketones (NEGATIVE) Urine Occult Blood (Negative) Urine Nitrate Urine Bilirubin (NEGATIVE) Ur Bilirubin Confirm (Negative) Urine Urobilinogen (0.2) E.U./dL Ur Leukocyte Esterase (NEGATIVE) Urine RBC (0-5/HPF) Urine WBC (0-5/HPF) Amorphous Sediment Urine Bacteria (None) Ur Culture Indicated? Micro UA Comment Ur Random Sodium (30-90) mmol/L Urine Creatinine mg/dL U Opiates 300ng/mL cut (Negative) Ur Oxycodone Screen (Negative) Urine Methadone Screen (Negative) Acetaminophen (10-30) ug/mL Ur Barbiturates Screen (Negative) U Tricyclic Antidepress (Negative) Ur Phencyclidine Scrn (Negative) Ur Amphetamines Screen (Negative) U Methamphetamines Scrn (Negative) Ur MDMA Scrn (Ecstasy) (Negative) U Benzodiazepines Scrn (Negative) Urine Cocaine Screen (Negative) U Marijuana (THC) Screen (Negative) Ethyl Alcohol ( - 10) mg/dL SARS-CoV-2 (PCR) (Negative) Hepatitis A IgM Ab (Negative) Hep Bs Antigen (Negative) Hep B Core IgM Ab (Negative) Hepatitis C Antibody (0.0-0.9) s/co ratio Hep C Ab Signal/Cutoff (.) Blood Type O Positive Antibody Screen Negative Crossmatch See Detail 06/10/21 Range/Units 19:07 WBC (4.5-11.0) X10^3/uL RBC (4.5-5.9) X10^6/uL Hgb 5.7 L* (13.5-17.5) g/dL Hct 17.2 L* (41-53) % MCV (80-100) fL MCH (26-34) PG MCHC (30-36) % RDW (11.6-14.8) % Plt Count (150-400) X10^3/uL Neut % (Auto) Lymph % (Auto) [place] % (Auto) Eos % (Auto) Baso % (Auto) Lymph # (Auto) [place] # (Auto) Baso # (Auto) Total Counted Seg Neutrophils % (38-70) % Band Neutrophils % (3-7) % Lymphocytes % (Manual) (25-45) % Monocytes % (Manual) (2-11) % Neutrophils # (Manual) (8877-3461) /uL RBC Morphology Polychromasia Macrocytosis Tear Drop Cells Stomatocytes PT (10.1-12.7) SECONDS INR (0.9-1.3) APTT (26.4-36.2) SECONDS Sodium (137-145) mmol/L Potassium (3.4-5.1) mmol/L Chloride (98-107) mmol/L Carbon Dioxide (22-32) mmol/L BUN (9-20) mg/dL Creatinine (0.66-1.25) mg/dL Estimated GFR (>60) mL/min BUN/Creatinine Ratio (6-22) Glucose (70-100) mg/dL Calcium (8.4-10.2) mg/dL Total Bilirubin (0.2-1.3) mg/dL Conjugated Bilirubin (0.0-0.3) md/dL Unconjugated Bilirubin (0.0-1.1) mg/dL AST (17-59) IU/L ALT (<50) IU/L Alkaline Phosphatase (38-126) U/L Ammonia (9-30) umol/L Total Protein (6.3-8.2) g/dL Albumin (3.5-5.0) g/dL Globulin (1.7-4.1) g/dL Albumin/Globulin Ratio (1.0-2.8) Lipase (23-300) U/L Urine Color Urine Appearance Urine pH (4.5-8.0) Ur Specific [place] (1.000-1.035) Urine Protein (Negative) Urine Glucose (UA) (Negative) g/dL Urine Ketones (NEGATIVE) Urine Occult Blood (Negative) Urine Nitrate Urine Bilirubin (NEGATIVE) Ur Bilirubin Confirm (Negative) Urine Urobilinogen (0.2) E.U./dL Ur Leukocyte Esterase (NEGATIVE) Urine RBC (0-5/HPF) Urine WBC (0-5/HPF) Amorphous Sediment Urine Bacteria (None) Ur Culture Indicated? Micro UA Comment Ur Random Sodium (30-90) mmol/L Urine Creatinine mg/dL U Opiates 300ng/mL cut (Negative) Ur Oxycodone Screen (Negative) Urine Methadone Screen (Negative) Acetaminophen (10-30) ug/mL Ur Barbiturates Screen (Negative) U Tricyclic Antidepress (Negative) Ur Phencyclidine Scrn (Negative) Ur Amphetamines Screen (Negative) U Methamphetamines Scrn (Negative) Ur MDMA Scrn (Ecstasy) (Negative) U Benzodiazepines Scrn (Negative) Urine Cocaine Screen (Negative) U Marijuana (THC) Screen (Negative) Ethyl Alcohol ( - 10) mg/dL SARS-CoV-2 (PCR) (Negative) Hepatitis A IgM Ab (Negative) Hep Bs Antigen (Negative) Hep B Core IgM Ab (Negative) Hepatitis C Antibody (0.0-0.9) s/co ratio Hep C Ab Signal/Cutoff (.) Blood Type Antibody Screen Crossmatch MDM Narrative Medical decision making narrative: MELD score is 37. This is a 30-year-old male with known history of cirrhosis secondary to alcohol abuse. He had hepatitis panel in March which was negative. Patient has had repeat labs an outpatient today which show shows a bilirubin of 10.7, AST 182, ALT 80 alk-phos at 3:09 a.m. with a ammonia of 67. Creatinine is 5.4 with normal potassium but a sodium of 125 and a chloride of 88. Patient does have a leukocytosis, hemoglobin of 7 with platelets of 284. Patient's ultrasound was difficult to obtain shows cirrhotic changes but unable to fully visualize the kidneys. CT KUB was obtained and shows hepatomegaly with diffuse hepatic steatosis. Signs of portal hypertension or seen with splenomegaly and paraesophageal varices. Gallbladder sludge without any additional signs of cholecystitis, diverticulitis and small nonspecific retroperitoneal lymph nodes which are stable compared to 04/08/2021. Patient states he quit drinking alcohol on the 31 of May. His alcohol level today is negative. He has been taking losartan, spironolactone Lasix and fluoxetine. He has not had any urine output here in the department and his Rodriguez bulb is visualized on the CT with a decompressed bladder. Patient does not need acute emergent dialysis tonight but will likely needed in the next day or 2. We initiated search for transfer as there are no beds regionally. Patient was given fluids with minimal change. He has been hypotensive but not hypoxic. His mentation has been appropriate. He is accompanied by his who is aware of all of his findings today. Patient was signed out to Dr. Vee while continue to search for placement. Plan for repeat labs, continued monitoring of urine output. Dr vee: Received turned over. Review patient's history and physical and labs. Overnight patient has been stable. Very slight improvement of kidney function with fluids. FeNA is 0.2 which indicates a pre renal source. Patient has been producing a very small amount of urine. Will continue to plan on transfer to facilitate has nephrology and hepatology. Care turned over to Dr. Whitlock to continue to follow up and disposition. Dr vee overnight 06/10/21-06/11/21: Resumed care of patient. Did review his previous several hours. Patient is tachycardic but has been tachycardic. Normally he is been 105-115. Blood pressure has been systolic of 85-110 and this is been consistent since being here in the ER. Has produced minimal urine since his time here. Fluids were. Throughout the day because the lack of urine output in the patient becoming somewhat addendum is specifically in his lower extremities. He has no shortness of breath. Not hypoxic. Has been ambulatory and is not tachypneic. Patient is now significantly anemic. This most likely is delusional however there is significant concern about bleeding. The patient has not had any vomiting. No black colored stools. No dark vomit. He has no abdominal tenderness. I had a discussion with him about transfusing blood. We did discuss the risks and benefits of this. I had this discussion to the start of my shift and he stated that he would like to hold on any blood transfusions. He does agree that if his symptoms worsen that he would have the transfusion. He would like to sleep on this decision. Patient has remained stable overnight. I discussed the case with the [facility] provider who stated that there is approval for the patient to be transported to [facility]. I did discuss the case with Dr. Ferguson at [facility] internal medicine department. She recommended the patient be transfused prior to discharge. I agree with this. I went back and talked with the patient and he now consents to a transfusion. Patient was also given Protonix and octreotide. Patient is stable for transport. Patient is aware the need for transport. <Hermelindo Whitlock MD - Last Filed: 06/16/21 11:57> Lab Data Labs: Lab Results 06/09/21 06/09/21 06/09/21 Range/Units 14:00 15:45 15:45 WBC (4.5-11.0) X10^3/uL RBC (4.5-5.9) X10^6/uL Hgb (13.5-17.5) g/dL Hct (41-53) % MCV (80-100) fL MCH (26-34) PG MCHC (30-36) % RDW (11.6-14.8) % Plt Count (150-400) X10^3/uL Neut % (Auto) Lymph % (Auto) [place] % (Auto) Eos % (Auto) Baso % (Auto) Lymph # (Auto) [place] # (Auto) Baso # (Auto) Total Counted Seg Neutrophils % (38-70) % Band Neutrophils % (3-7) % Lymphocytes % (Manual) (25-45) % Monocytes % (Manual) (2-11) % Neutrophils # (Manual) (9725-9807) /uL RBC Morphology Polychromasia Macrocytosis Tear Drop Cells Stomatocytes PT (10.1-12.7) SECONDS INR (0.9-1.3) APTT (26.4-36.2) SECONDS Sodium (137-145) mmol/L Potassium (3.4-5.1) mmol/L Chloride (98-107) mmol/L Carbon Dioxide (22-32) mmol/L BUN (9-20) mg/dL Creatinine (0.66-1.25) mg/dL Estimated GFR (>60) mL/min BUN/Creatinine Ratio (6-22) Glucose (70-100) mg/dL Calcium (8.4-10.2) mg/dL Total Bilirubin (0.2-1.3) mg/dL Conjugated Bilirubin (0.0-0.3) md/dL Unconjugated Bilirubin (0.0-1.1) mg/dL AST (17-59) IU/L ALT (<50) IU/L Alkaline Phosphatase (38-126) U/L Ammonia (9-30) umol/L Total Protein (6.3-8.2) g/dL Albumin (3.5-5.0) g/dL Globulin (1.7-4.1) g/dL Albumin/Globulin Ratio (1.0-2.8) Lipase (23-300) U/L Urine Color Urine Appearance Urine pH (4.5-8.0) Ur Specific [place] (1.000-1.035) Urine Protein (Negative) Urine Glucose (UA) (Negative) g/dL Urine Ketones (NEGATIVE) Urine Occult Blood (Negative) Urine Nitrate Urine Bilirubin (NEGATIVE) Ur Bilirubin Confirm (Negative) Urine Urobilinogen (0.2) E.U./dL Ur Leukocyte Esterase (NEGATIVE) Urine RBC (0-5/HPF) Urine WBC (0-5/HPF) Amorphous Sediment Urine Bacteria (None) Ur Culture Indicated? Micro UA Comment Ur Random Sodium (30-90) mmol/L Urine Creatinine mg/dL U Opiates 300ng/mL cut (Negative) Ur Oxycodone Screen (Negative) Urine Methadone Screen (Negative) Acetaminophen (10-30) ug/mL Ur Barbiturates Screen (Negative) U Tricyclic Antidepress (Negative) Ur Phencyclidine Scrn (Negative) Ur Amphetamines Screen (Negative) U Methamphetamines Scrn (Negative) Ur MDMA Scrn (Ecstasy) (Negative) U Benzodiazepines Scrn (Negative) Urine Cocaine Screen (Negative) U Marijuana (THC) Screen (Negative) Ethyl Alcohol < 10 ( - 10) mg/dL SARS-CoV-2 (PCR) Negative (Negative) Hepatitis A IgM Ab Negative (Negative) Hep Bs Antigen Negative (Negative) Hep B Core IgM Ab Negative (Negative) Hepatitis C Antibody <0.1 (0.0-0.9) s/co ratio Hep C Ab Signal/Cutoff Comment (.) Blood Type Antibody Screen Crossmatch 06/09/21 06/09/21 06/09/21 Range/Units 15:45 15:45 15:45 WBC (4.5-11.0) X10^3/uL RBC (4.5-5.9) X10^6/uL Hgb (13.5-17.5) g/dL Hct (41-53) % MCV (80-100) fL MCH (26-34) PG MCHC (30-36) % RDW (11.6-14.8) % Plt Count (150-400) X10^3/uL Neut % (Auto) Lymph % (Auto) [place] % (Auto) Eos % (Auto) Baso % (Auto) Lymph # (Auto) [place] # (Auto) Baso # (Auto) Total Counted Seg Neutrophils % (38-70) % Band Neutrophils % (3-7) % Lymphocytes % (Manual) (25-45) % Monocytes % (Manual) (2-11) % Neutrophils # (Manual) (7165-6608) /uL RBC Morphology Polychromasia Macrocytosis Tear Drop Cells Stomatocytes PT 20.6 H (10.1-12.7) SECONDS INR 1.8 H (0.9-1.3) APTT 48 H (26.4-36.2) SECONDS Sodium (137-145) mmol/L Potassium (3.4-5.1) mmol/L Chloride (98-107) mmol/L Carbon Dioxide (22-32) mmol/L BUN (9-20) mg/dL Creatinine (0.66-1.25) mg/dL Estimated GFR (>60) mL/min BUN/Creatinine Ratio (6-22) Glucose (70-100) mg/dL Calcium (8.4-10.2) mg/dL Total Bilirubin (0.2-1.3) mg/dL Conjugated Bilirubin (0.0-0.3) md/dL Unconjugated Bilirubin (0.0-1.1) mg/dL AST (17-59) IU/L ALT (<50) IU/L Alkaline Phosphatase (38-126) U/L Ammonia (9-30) umol/L Total Protein (6.3-8.2) g/dL Albumin (3.5-5.0) g/dL Globulin (1.7-4.1) g/dL Albumin/Globulin Ratio (1.0-2.8) Lipase 144 (23-300) U/L Urine Color Urine Appearance Urine pH (4.5-8.0) Ur Specific [place] (1.000-1.035) Urine Protein (Negative) Urine Glucose (UA) (Negative) g/dL Urine Ketones (NEGATIVE) Urine Occult Blood (Negative) Urine Nitrate Urine Bilirubin (NEGATIVE) Ur Bilirubin Confirm (Negative) Urine Urobilinogen (0.2) E.U./dL Ur Leukocyte Esterase (NEGATIVE) Urine RBC (0-5/HPF) Urine WBC (0-5/HPF) Amorphous Sediment Urine Bacteria (None) Ur Culture Indicated? Micro UA Comment Ur Random Sodium (30-90) mmol/L Urine Creatinine mg/dL U Opiates 300ng/mL cut (Negative) Ur Oxycodone Screen (Negative) Urine Methadone Screen (Negative) Acetaminophen < 10 L (10-30) ug/mL Ur Barbiturates Screen (Negative) U Tricyclic Antidepress (Negative) Ur Phencyclidine Scrn (Negative) Ur Amphetamines Screen (Negative) U Methamphetamines Scrn (Negative) Ur MDMA Scrn (Ecstasy) (Negative) U Benzodiazepines Scrn (Negative) Urine Cocaine Screen (Negative) U Marijuana (THC) Screen (Negative) Ethyl Alcohol ( - 10) mg/dL SARS-CoV-2 (PCR) (Negative) Hepatitis A IgM Ab (Negative) Hep Bs Antigen (Negative) Hep B Core IgM Ab (Negative) Hepatitis C Antibody (0.0-0.9) s/co ratio Hep C Ab Signal/Cutoff (.) Blood Type Antibody Screen Crossmatch 06/09/21 06/09/21 06/09/21 Range/Units 22:24 22:24 22:24 WBC (4.5-11.0) X10^3/uL RBC (4.5-5.9) X10^6/uL Hgb (13.5-17.5) g/dL Hct (41-53) % MCV (80-100) fL MCH (26-34) PG MCHC (30-36) % RDW (11.6-14.8) % Plt Count (150-400) X10^3/uL Neut % (Auto) Lymph % (Auto) [place] % (Auto) Eos % (Auto) Baso % (Auto) Lymph # (Auto) [place] # (Auto) Baso # (Auto) Total Counted Seg Neutrophils % (38-70) % Band Neutrophils % (3-7) % Lymphocytes % (Manual) (25-45) % Monocytes % (Manual) (2-11) % Neutrophils # (Manual) (3487-7077) /uL RBC Morphology Polychromasia Macrocytosis Tear Drop Cells Stomatocytes PT (10.1-12.7) SECONDS INR (0.9-1.3) APTT (26.4-36.2) SECONDS Sodium 126 L (137-145) mmol/L Potassium 4.4 (3.4-5.1) mmol/L Chloride 91 L (98-107) mmol/L Carbon Dioxide 28 (22-32) mmol/L BUN 32 H (9-20) mg/dL Creatinine 5.75 H (0.66-1.25) mg/dL Estimated GFR 11.6 L (>60) mL/min BUN/Creatinine Ratio 5.6 L (6-22) Glucose 90 (70-100) mg/dL Calcium 6.7 L (8.4-10.2) mg/dL Total Bilirubin (0.2-1.3) mg/dL Conjugated Bilirubin (0.0-0.3) md/dL Unconjugated Bilirubin (0.0-1.1) mg/dL AST (17-59) IU/L ALT (<50) IU/L Alkaline Phosphatase (38-126) U/L Ammonia (9-30) umol/L Total Protein (6.3-8.2) g/dL Albumin (3.5-5.0) g/dL Globulin (1.7-4.1) g/dL Albumin/Globulin Ratio (1.0-2.8) Lipase (23-300) U/L Urine Color Shayy Urine Appearance Cloudy Urine pH 6.5 (4.5-8.0) Ur Specific [place] 1.025 (1.000-1.035) Urine Protein 3+ H (Negative) Urine Glucose (UA) Trace H (Negative) g/dL Urine Ketones Trace H (NEGATIVE) Urine Occult Blood 3+ H (Negative) Urine Nitrate Not Reportable Urine Bilirubin 3+ H (NEGATIVE) Ur Bilirubin Confirm Positive H (Negative) Urine Urobilinogen 1.0 (0.2) E.U./dL Ur Leukocyte Esterase 2+ H (NEGATIVE) Urine RBC 10-30/hpf H (0-5/HPF) Urine WBC 5-10/hpf H (0-5/HPF) Amorphous Sediment 3+ Urine Bacteria None seen (None) Ur Culture Indicated? Specimen cultured Micro UA Comment * Ur Random Sodium 21 L (30-90) mmol/L Urine Creatinine 432.1 mg/dL U Opiates 300ng/mL cut (Negative) Ur Oxycodone Screen (Negative) Urine Methadone Screen (Negative) Acetaminophen (10-30) ug/mL Ur Barbiturates Screen (Negative) U Tricyclic Antidepress (Negative) Ur Phencyclidine Scrn (Negative) Ur Amphetamines Screen (Negative) U Methamphetamines Scrn (Negative) Ur MDMA Scrn (Ecstasy) (Negative) U Benzodiazepines Scrn (Negative) Urine Cocaine Screen (Negative) U Marijuana (THC) Screen (Negative) Ethyl Alcohol ( - 10) mg/dL SARS-CoV-2 (PCR) (Negative) Hepatitis A IgM Ab (Negative) Hep Bs Antigen (Negative) Hep B Core IgM Ab (Negative) Hepatitis C Antibody (0.0-0.9) s/co ratio Hep C Ab Signal/Cutoff (.) Blood Type Antibody Screen Crossmatch 06/09/21 06/10/21 06/10/21 Range/Units 22:24 06:00 06:00 WBC (4.5-11.0) X10^3/uL RBC (4.5-5.9) X10^6/uL Hgb (13.5-17.5) g/dL Hct (41-53) % MCV (80-100) fL MCH (26-34) PG MCHC (30-36) % RDW (11.6-14.8) % Plt Count (150-400) X10^3/uL Neut % (Auto) Lymph % (Auto) [place] % (Auto) Eos % (Auto) Baso % (Auto) Lymph # (Auto) [place] # (Auto) Baso # (Auto) Total Counted Seg Neutrophils % (38-70) % Band Neutrophils % (3-7) % Lymphocytes % (Manual) (25-45) % Monocytes % (Manual) (2-11) % Neutrophils # (Manual) (0376-3946) /uL RBC Morphology Polychromasia Macrocytosis Tear Drop Cells Stomatocytes PT (10.1-12.7) SECONDS INR (0.9-1.3) APTT (26.4-36.2) SECONDS Sodium 129 L (137-145) mmol/L Potassium 4.2 (3.4-5.1) mmol/L Chloride 93 L (98-107) mmol/L Carbon Dioxide 26 (22-32) mmol/L BUN 34 H (9-20) mg/dL Creatinine 5.05 H (0.66-1.25) mg/dL Estimated GFR 13.4 L (>60) mL/min BUN/Creatinine Ratio 6.7 (6-22) Glucose 94 (70-100) mg/dL Calcium 6.5 L (8.4-10.2) mg/dL Total Bilirubin 9.9 H (0.2-1.3) mg/dL Conjugated Bilirubin 6.1 H (0.0-0.3) md/dL Unconjugated Bilirubin 1.3 H (0.0-1.1) mg/dL AST 148 H (17-59) IU/L ALT 68 H (<50) IU/L Alkaline Phosphatase 261 H (38-126) U/L Ammonia 37 H (9-30) umol/L Total Protein 6.1 L (6.3-8.2) g/dL Albumin 2.6 L (3.5-5.0) g/dL Globulin 3.5 (1.7-4.1) g/dL Albumin/Globulin Ratio 0.7 L (1.0-2.8) Lipase (23-300) U/L Urine Color Urine Appearance Urine pH (4.5-8.0) Ur Specific [place] (1.000-1.035) Urine Protein (Negative) Urine Glucose (UA) (Negative) g/dL Urine Ketones (NEGATIVE) Urine Occult Blood (Negative) Urine Nitrate Urine Bilirubin (NEGATIVE) Ur Bilirubin Confirm (Negative) Urine Urobilinogen (0.2) E.U./dL Ur Leukocyte Esterase (NEGATIVE) Urine RBC (0-5/HPF) Urine WBC (0-5/HPF) Amorphous Sediment Urine Bacteria (None) Ur Culture Indicated? Micro UA Comment Ur Random Sodium (30-90) mmol/L Urine Creatinine mg/dL U Opiates 300ng/mL cut Negative (Negative) Ur Oxycodone Screen Negative (Negative) Urine Methadone Screen Negative (Negative) Acetaminophen (10-30) ug/mL Ur Barbiturates Screen Negative (Negative) U Tricyclic Antidepress Positive H (Negative) Ur Phencyclidine Scrn Negative (Negative) Ur Amphetamines Screen Negative (Negative) U Methamphetamines Scrn Negative (Negative) Ur MDMA Scrn (Ecstasy) Negative (Negative) U Benzodiazepines Scrn Negative (Negative) Urine Cocaine Screen Negative (Negative) U Marijuana (THC) Screen Negative (Negative) Ethyl Alcohol ( - 10) mg/dL SARS-CoV-2 (PCR) (Negative) Hepatitis A IgM Ab (Negative) Hep Bs Antigen (Negative) Hep B Core IgM Ab (Negative) Hepatitis C Antibody (0.0-0.9) s/co ratio Hep C Ab Signal/Cutoff (.) Blood Type Antibody Screen Crossmatch 06/10/21 06/10/21 06/10/21 Range/Units 18:27 18:27 19:07 WBC 17.7 H (4.5-11.0) X10^3/uL RBC 1.59 L (4.5-5.9) X10^6/uL Hgb 5.6 L* (13.5-17.5) g/dL Hct 16.8 L* (41-53) % MCV 105.7 H (80-100) fL MCH 35.6 H (26-34) PG MCHC 33.6 (30-36) % RDW 15.9 H (11.6-14.8) % Plt Count 230 (150-400) X10^3/uL Neut % (Auto) Not Reportable Lymph % (Auto) Not Reportable [place] % (Auto) Not Reportable Eos % (Auto) Not Reportable Baso % (Auto) Not Reportable Lymph # (Auto) Not Reportable [place] # (Auto) Not Reportable Baso # (Auto) Not Reportable Total Counted 100 Seg Neutrophils % 77.0 H (38-70) % Band Neutrophils % 4.0 (3-7) % Lymphocytes % (Manual) 6.0 L (25-45) % Monocytes % (Manual) 13.0 H (2-11) % Neutrophils # (Manual) 71654 H (7891-7288) /uL RBC Morphology See below Polychromasia 2+ H Macrocytosis 1+ H Tear Drop Cells 2+ H Stomatocytes 2+ H PT (10.1-12.7) SECONDS INR (0.9-1.3) APTT (26.4-36.2) SECONDS Sodium 127 L (137-145) mmol/L Potassium 4.3 (3.4-5.1) mmol/L Chloride 94 L (98-107) mmol/L Carbon Dioxide 27 (22-32) mmol/L BUN 37 H (9-20) mg/dL Creatinine 4.48 H (0.66-1.25) mg/dL Estimated GFR 15.4 L (>60) mL/min BUN/Creatinine Ratio 8.3 (6-22) Glucose 112 H (70-100) mg/dL Calcium 6.2 L* (8.4-10.2) mg/dL Total Bilirubin 9.9 H (0.2-1.3) mg/dL Conjugated Bilirubin 6.1 H (0.0-0.3) md/dL Unconjugated Bilirubin 1.2 H (0.0-1.1) mg/dL AST 136 H (17-59) IU/L ALT 60 H (<50) IU/L Alkaline Phosphatase 215 H (38-126) U/L Ammonia (9-30) umol/L Total Protein 5.7 L (6.3-8.2) g/dL Albumin 2.4 L (3.5-5.0) g/dL Globulin 3.3 (1.7-4.1) g/dL Albumin/Globulin Ratio 0.7 L (1.0-2.8) Lipase (23-300) U/L Urine Color Urine Appearance Urine pH (4.5-8.0) Ur Specific [place] (1.000-1.035) Urine Protein (Negative) Urine Glucose (UA) (Negative) g/dL Urine Ketones (NEGATIVE) Urine Occult Blood (Negative) Urine Nitrate Urine Bilirubin (NEGATIVE) Ur Bilirubin Confirm (Negative) Urine Urobilinogen (0.2) E.U./dL Ur Leukocyte Esterase (NEGATIVE) Urine RBC (0-5/HPF) Urine WBC (0-5/HPF) Amorphous Sediment Urine Bacteria (None) Ur Culture Indicated? Micro UA Comment Ur Random Sodium (30-90) mmol/L Urine Creatinine mg/dL U Opiates 300ng/mL cut (Negative) Ur Oxycodone Screen (Negative) Urine Methadone Screen (Negative) Acetaminophen (10-30) ug/mL Ur Barbiturates Screen (Negative) U Tricyclic Antidepress (Negative) Ur Phencyclidine Scrn (Negative) Ur Amphetamines Screen (Negative) U Methamphetamines Scrn (Negative) Ur MDMA Scrn (Ecstasy) (Negative) U Benzodiazepines Scrn (Negative) Urine Cocaine Screen (Negative) U Marijuana (THC) Screen (Negative) Ethyl Alcohol ( - 10) mg/dL SARS-CoV-2 (PCR) (Negative) Hepatitis A IgM Ab (Negative) Hep Bs Antigen (Negative) Hep B Core IgM Ab (Negative) Hepatitis C Antibody (0.0-0.9) s/co ratio Hep C Ab Signal/Cutoff (.) Blood Type O Positive Antibody Screen Negative Crossmatch See Detail 06/10/21 Range/Units 19:07 WBC (4.5-11.0) X10^3/uL RBC (4.5-5.9) X10^6/uL Hgb 5.7 L* (13.5-17.5) g/dL Hct 17.2 L* (41-53) % MCV (80-100) fL MCH (26-34) PG MCHC (30-36) % RDW (11.6-14.8) % Plt Count (150-400) X10^3/uL Neut % (Auto) Lymph % (Auto) [place] % (Auto) Eos % (Auto) Baso % (Auto) Lymph # (Auto) [place] # (Auto) Baso # (Auto) Total Counted Seg Neutrophils % (38-70) % Band Neutrophils % (3-7) % Lymphocytes % (Manual) (25-45) % Monocytes % (Manual) (2-11) % Neutrophils # (Manual) (4053-7100) /uL RBC Morphology Polychromasia Macrocytosis Tear Drop Cells Stomatocytes PT (10.1-12.7) SECONDS INR (0.9-1.3) APTT (26.4-36.2) SECONDS Sodium (137-145) mmol/L Potassium (3.4-5.1) mmol/L Chloride (98-107) mmol/L Carbon Dioxide (22-32) mmol/L BUN (9-20) mg/dL Creatinine (0.66-1.25) mg/dL Estimated GFR (>60) mL/min BUN/Creatinine Ratio (6-22) Glucose (70-100) mg/dL Calcium (8.4-10.2) mg/dL Total Bilirubin (0.2-1.3) mg/dL Conjugated Bilirubin (0.0-0.3) md/dL Unconjugated Bilirubin (0.0-1.1) mg/dL AST (17-59) IU/L ALT (<50) IU/L Alkaline Phosphatase (38-126) U/L Ammonia (9-30) umol/L Total Protein (6.3-8.2) g/dL Albumin (3.5-5.0) g/dL Globulin (1.7-4.1) g/dL Albumin/Globulin Ratio (1.0-2.8) Lipase (23-300) U/L Urine Color Urine Appearance Urine pH (4.5-8.0) Ur Specific [place] (1.000-1.035) Urine Protein (Negative) Urine Glucose (UA) (Negative) g/dL Urine Ketones (NEGATIVE) Urine Occult Blood (Negative) Urine Nitrate Urine Bilirubin (NEGATIVE) Ur Bilirubin Confirm (Negative) Urine Urobilinogen (0.2) E.U./dL Ur Leukocyte Esterase (NEGATIVE) Urine RBC (0-5/HPF) Urine WBC (0-5/HPF) Amorphous Sediment Urine Bacteria (None) Ur Culture Indicated? Micro UA Comment Ur Random Sodium (30-90) mmol/L Urine Creatinine mg/dL U Opiates 300ng/mL cut (Negative) Ur Oxycodone Screen (Negative) Urine Methadone Screen (Negative) Acetaminophen (10-30) ug/mL Ur Barbiturates Screen (Negative) U Tricyclic Antidepress (Negative) Ur Phencyclidine Scrn (Negative) Ur Amphetamines Screen (Negative) U Methamphetamines Scrn (Negative) Ur MDMA Scrn (Ecstasy) (Negative) U Benzodiazepines Scrn (Negative) Urine Cocaine Screen (Negative) U Marijuana (THC) Screen (Negative) Ethyl Alcohol ( - 10) mg/dL SARS-CoV-2 (PCR) (Negative) Hepatitis A IgM Ab (Negative) Hep Bs Antigen (Negative) Hep B Core IgM Ab (Negative) Hepatitis C Antibody (0.0-0.9) s/co ratio Hep C Ab Signal/Cutoff (.) Blood Type Antibody Screen Crossmatch <Drake Vee, DO - Last Filed: 06/11/21 06:43> Critical Care Time Critical Care Time: Yes Total Critical Care Time: 65 Attestation: The high probability of a clinically significant, sudden or life threatening deterioration of the hepatic, renal, circulatory, cardiovascular system(s) required my full and direct attention, intervention and personal management. The aggregate critical care time was [65] minutes. This time is in addition to time spent performing reported procedures but includes the following: [x] Data Review and interpretation [x] Patient assessment and monitoring of vital signs [x] Documentation [x] Medication orders and management Discharge Plan [facility]: Renal failure, Alcoholic liver failure, Hyponatremia, Anemia, Hyperbilir ubinemia Prescriptions: No Action fluoxetine [Prozac] 20 mg capsule 20 mg PO DAILY Qty: 60 0RF furosemide [Lasix] 20 mg tablet 20 mg PO DAILY Qty: 60 0RF spironolactone 50 mg tablet 50 mg PO DAILY Qty: 60 0RF losartan 50 mg tablet 50 mg PO DAILY Qty: 90 0RF Referrals: Horras,Faustino M, MD [Primary Care Provider] -
--- NOTE | 2021-06-09 17:19 | DI.CT.S_ITS ---
PROCEDURE: CT KIDNEY URETER BLADDER (KUB) INDICATIONS: liver/renal failure TECHNIQUE: Axial sections were acquired from the lung bases to the pubic symphysis. Coronal and sagittal reformats were performed. For radiation dose reduction, the following was used: automated exposure control, adjustment of mA and/or kV according to patient size. COMPARISON: , CT, CT ABDOMEN PELVIS W CON, 04/08/2021, 1:49. FINDINGS: Image quality: Excellent. Lung bases: Unremarkable. Heart: No significant findings. URINARY: Kidneys and ureters: No renal or ureteral calculus or hydronephrosis. Bladder: The bladder is decompressed by a Rodriguez catheter. ABDOMEN: Liver: The liver is diffusely hypoattenuating and enlarged, measuring up to 26.9 cm and craniocaudal dimension. Gallbladder: Small amount of hyperdense sludge is seen in the gallbladder fundus. No pericholecystic inflammatory changes are seen. Biliary ducts: Unremarkable. Pancreas: Unremarkable. Spleen: The spleen is mildly enlarged, measuring up to 16 cm in craniocaudal dimension. Adrenal Glands: Unremarkable. Stomach and Bowel: A few diverticula are seen in the colon without signs of acute diverticulitis. No signs of bowel obstruction. Normal retrocecal appendix. Peritoneum: No abnormal intraperitoneal fluid. The previously seen small volume of ascites has resolved. No free air. Ventral Wall: No hernia. There is mild soft tissue anasarca. Abdominal Nodes: An anterior aortocaval lymph node again measures 1.1 cm in short axis (48/2). Left periaortic lymph node measures 0.7 cm in short axis (43/2), previously 1.0 cm. Additional small retroperitoneal lymph nodes are mildly increased in number. Vessels: Aorta and inferior vena cava are normal in size. Paraesophageal varices are noted. PELVIS: Pelvic Organs: Unremarkable. Pelvic Nodes: Unremarkable. Miscellaneous: No inguinal hernias are seen. Bones: Healing left posterior 10th and 11th rib fractures are noted. A right posterior 10th rib fracture appears nearly completely healed. Right posterior 8th rib fracture does not demonstrate significant bridging ossification. IMPRESSION: 1. Hepatomegaly and diffuse hepatic steatosis redemonstrated. Signs of portal hypertension are again seen including splenomegaly and paraesophageal varices. 2. Gallbladder sludge without additional signs of acute cholecystitis. 3. Mild colonic diverticulosis. 4. Stable to mildly decreased small nonspecific retroperitoneal lymph nodes when compared to the exam from 04/08/2021. 5. Bilateral healing rib fractures. Dictated by: Selvin Johnson M.D. on 06/09/2021 at 17:41 Approved by: Selvin Johnson M.D. on 06/09/2021 at 17:52
[2021-06-09 17:33] LABS: INR 1.8 (0.9-1.3); Prothrombin Time 20.6 SECONDS (10.1-12.7)
[2021-06-09 17:35] LABS: PTT Partial Thromboplastin Tim 48 SECONDS (26.4-36.2)
[2021-06-09 17:58] LABS: COVID19 - ADMIT (NP swab/PCR) Negative (Negative)
[2021-06-09 19:42] LABS: Lipase 144 U/L (23-300)
[2021-06-09] MEDS: SODIUM CHLORIDE 0.9% 1,000 ML 150 ML IV (20:35)
[2021-06-09 20:45] LABS: Acetaminophen < 10 ug/mL (10-30)
[2021-06-09 22:37] LABS: Bilirubin Urine UA 3+ (NEGATIVE); Glucose Urine UA TRACE g/dL (Negative); Ketones Urine UA TRACE (NEGATIVE); Leukocyte Esterase Urine UA 2+ (NEGATIVE); Occult Blood Urine UA 3+ (Negative); Protein Urine UA 3+ (Negative); Specific Gravity Urine UA 1.025 (1.000-1.035); pH Urine UA 6.5 (4.5-8.0)
[2021-06-09 22:44] LABS: BUN Creatinine Ratio 5.6 (6-22); Blood Urea Nitrogen 32 mg/dL (9-20); Calcium 6.7 mg/dL (8.4-10.2); Carbon Dioxide 28 mmol/L (22-32); Chloride 91 mmol/L (98-107); Estimated Glomerular Filt Rate 11.6 mL/min (>60); Glucose 90 mg/dL (70-100); HEMOLYSIS < 15 (0-50); Potassium 4.4 mmol/L (3.4-5.1); Sodium 126 mmol/L (137-145)
[2021-06-09 22:55] LABS: Sodium Urine Random 21 mmol/L (30-90)
[2021-06-09 23:12] LABS: Appearance Urine UA Cloudy; Color Urine UA Amber
[2021-06-09 23:14] LABS: Amorphous Sediment Urine 3+; Bacteria Urine None Seen; Culture Indicated Urine Specimen Cultured; Ictotest Urine Positive (Negative); RBC Urine 10-30/HPF (0-5/HPF); WBC Urine 5-10/HPF (0-5/HPF)
[2021-06-09 23:34] LABS: Creatinine Urine Random 432.1 mg/dL
[2021-06-10] VITALS (36 sets, daily range): BP systolic 87–111; BP diastolic 44–58; PULSE 104–120; RESP 15–37; TEMP 36.7–36.9; O2SAT 91–99
[2021-06-10 02:13] LABS: Ur Creatinine 100 (Normal); Ur Specific Gravity 1.025 (Normal); Urine pH 6.5 (Normal)
[2021-06-10 02:14] LABS: UR Morphine/Opiate cutoff 300 Negative (Negative); Urine Amphetamines Negative (Negative); Urine Barbiturates Negative (Negative); Urine Benzodiazepines Negative (Negative); Urine Cocaine Negative (Negative); Urine MDMA Negative (Negative); Urine Methadone Negative (Negative); Urine Methamphetamines Negative (Negative); Urine Oxycodone Negative (Negative); Urine Phencyclidine Negative (Negative); Urine Tetrahydrocannabinol Negative (Negative); Urine Tricyclic Antidepressant Positive (Negative)
[2021-06-10] MEDS: SODIUM CHLORIDE 0.9% 1,000 ML 250 ML IV ×2 (02:53→10:22)
[2021-06-10 06:27] LABS: Ammonia (NH3) 37 umol/L (9-30)
[2021-06-10 06:28] LABS: Alanine Aminotransferase 68 IU/L (<50); Albumin 2.6 g/dL (3.5-5.0); Albumin Globulin Ratio 0.7 (1.0-2.8); Alkaline Phosphatase 261 U/L (38-126); Aspartate Aminotransferase 148 IU/L (17-59); BUN Creatinine Ratio 6.7 (6-22); Bilirubin Conjugated 6.1 md/dL (0.0-0.3); Bilirubin Total 9.9 mg/dL (0.2-1.3); Bilirubin Unconjugated 1.3 mg/dL (0.0-1.1); Blood Urea Nitrogen 34 mg/dL (9-20); Calcium 6.5 mg/dL (8.4-10.2); Carbon Dioxide 26 mmol/L (22-32); Chloride 93 mmol/L (98-107); Estimated Glomerular Filt Rate 13.4 mL/min (>60); Globulin 3.5 g/dL (1.7-4.1); Glucose 94 mg/dL (70-100); HEMOLYSIS < 15 (0-50); Potassium 4.2 mmol/L (3.4-5.1); Sodium 129 mmol/L (137-145); Total Protein 6.1 g/dL (6.3-8.2)
--- NOTE | 2021-06-10 14:04 | PC.NURSE ---
[facility] called for update.
--- NOTE | 2021-06-10 17:07 | PC.NURSE ---
Reported patient's urine output to physician. Per physician, hold IV fluids.
[2021-06-10 18:46] LABS: Add Manual Diff / Slide Review NO; Mean Corpuscular HGB Conc 33.6 % (30-36); Mean Corpuscular Hemoglobin 35.6 PG (26-34); Mean Corpuscular Volume 105.7 fL (80-100); Platelet Count 230 X10^3/uL (150-400); Red Blood Cell Count 1.59 X10^6/uL (4.5-5.9); Red Cell Distribution Width 15.9 % (11.6-14.8); White Blood Cell Count 17.7 X10^3/uL (4.5-11.0)
[2021-06-10 18:48] LABS: Alanine Aminotransferase 60 IU/L (<50); Albumin 2.4 g/dL (3.5-5.0); Albumin Globulin Ratio 0.7 (1.0-2.8); Alkaline Phosphatase 215 U/L (38-126); Aspartate Aminotransferase 136 IU/L (17-59); BUN Creatinine Ratio 8.3 (6-22); Bilirubin Conjugated 6.1 md/dL (0.0-0.3); Bilirubin Total 9.9 mg/dL (0.2-1.3); Bilirubin Unconjugated 1.2 mg/dL (0.0-1.1); Blood Urea Nitrogen 37 mg/dL (9-20); Carbon Dioxide 27 mmol/L (22-32); Chloride 94 mmol/L (98-107); Estimated Glomerular Filt Rate 15.4 mL/min (>60); Globulin 3.3 g/dL (1.7-4.1); Glucose 112 mg/dL (70-100); HEMOLYSIS < 15 (0-50); Hematocrit 16.8 % (41-53); Hemoglobin 5.6 g/dL (13.5-17.5); Potassium 4.3 mmol/L (3.4-5.1); Sodium 127 mmol/L (137-145); Total Protein 5.7 g/dL (6.3-8.2)
[2021-06-10 19:04] LABS: Calcium 6.2 mg/dL (8.4-10.2)
[2021-06-10 19:12] LABS: Macrocytosis 1+; Neutrophils Absolute Manual 14337 /uL (3000-5900); Polychromasia 2+; Stomatocytes 2+; Total Cells Counted 100
[2021-06-10 19:13] LABS: Tear Drop Cells 2+
[2021-06-10] MEDS: FUROSEMIDE 40 MG/4 ML VIAL IV (19:20)
[2021-06-10 19:27] LABS: Hematocrit 17.2 % (41-53); Hemoglobin 5.7 g/dL (13.5-17.5)
--- NOTE | 2021-06-10 21:31 | PC.NURSE ---
1905 - Checked on patient. He is stating that he wants to decline the blood transfusion at this time and sleep on it. Provider is notified and has discussion with him as well. Patient agrees to notify us if he has any new symptoms and will continue to monitor his vital signs.
[2021-06-11] VITALS (33 sets, daily range): BP systolic 84–131; BP diastolic 41–55; PULSE 67–113; RESP 10–27; TEMP 36.4–36.8; O2SAT 93–98
[2021-06-11 01:36] LABS: HBsAg Screen Negative (Negative); Hepatitis A Antibody IgM Negative (Negative); Hepatitis B Core Antibody IgM Negative (Negative); Hepatitis C Antibody <0.1 s/co ratio (0.0-0.9)
--- NOTE | 2021-06-11 06:15 | PC.NURSE ---
Pt reports that when he got up to have a BM, it looked black/bloody. Pt reminded that we would like to test next stool for blood, he verbalized understanding. Pt consents to receive PRBC's, will begin transfusion. Plan is now to transfer to after transfusion.
[2021-06-11] MEDS: OCTREOTIDE 100 MCG/ML VIAL 50 MCG IV (06:47)
[2021-06-11] MEDS: PANTOPRAZOLE 40 MG VIAL 80 MG IV (06:47)
[2021-06-11] MEDS: OCTREOTIDE 500 MCG in SODIUM CHLORIDE 0.9% 100 ML 10.1 ML IV (07:00)
--- NOTE | 2021-06-11 07:55 | PC.NURSE ---
report to transfer center ana tatum
== END 2021-06-11 08:22 | disposition short-term general hospital (02) ==
PROVIDERS: Emergency Medicine; Emergency Provider Emergency Medicine; PCP Family Medicine
DX: N19 Unspecified kidney failure (principal); K70.40 Alcoholic hepatic failure without coma; E87.1 Hypo-osmolality and hyponatremia; D64.9 Anemia, unspecified; E80.6 Other disorders of bilirubin metabolism; R00.0 Tachycardia, unspecified; Z20.822 Contact with and (suspected) exposure to COVID-19; D53.1 Other megaloblastic anemias, not elsewhere classified; R79.89 Other specified abnormal findings of blood chemistry; R17 Unspecified jaundice; R18.8 Other ascites
CPT/HCPCS: 36415; 36430; 71045; 74176; 76700; 80048; 80053; 80074; 80076; 80305; 80320; 80329; 81001; 82140; 82306; 82570; 82728; 82746; 83690; 84300; 84439; 84443; 85007; 85014; 85018; 85025; 85610; 85651; 85730; 86850; 86900; 86901; 87086; 87635; 96361; 96365; 96375; 99285; 99291; C9803; P9016; C9113; G0480; J1940; J2354

== ENCOUNTER → 2021-06-25 07:59 | Outpatient (CLI) | payer OTHER, SELFPAY ==
[2021-06-25 08:41] LABS: Ammonia (NH3) 11 umol/L (9-30)
[2021-06-25 08:51] LABS: Add Manual Diff / Slide Review NO; Basophils Absolute Auto 200 /uL (0-100); Basophils Percent Auto 1.4 % (0-2); Eosinophils Absolute Auto 300 /uL (0-450); Eosinophils Percent Auto 2.5 % (2-4); Lymphocytes Absolute Auto 1300 /uL (1100-4500); Lymphocytes Percent Auto 10.2 % (25-40); Mean Corpuscular HGB Conc 33.3 % (30-36); Mean Corpuscular Hemoglobin 34.1 PG (26-34); Mean Corpuscular Volume 102.6 fL (80-100); Monocytes Absolute Auto 1400 /uL (0-900); Monocytes Percent Auto 11.5 % (3-14); Neutrophils Absolute Auto 9300 /uL (1500-7000); Neutrophils Percent Auto 74.4 % (50-75); Platelet Count 269 X10^3/uL (150-400); Red Blood Cell Count 2.34 X10^6/uL (4.5-5.9); Red Cell Distribution Width 19.8 % (11.6-14.8); White Blood Cell Count 12.5 X10^3/uL (4.5-11.0)
[2021-06-25 08:57] LABS: INR 1.3 (0.9-1.3); Prothrombin Time 14.6 SECONDS (10.1-12.7)
[2021-06-25 09:00] LABS: PTT Partial Thromboplastin Tim 53 SECONDS (26.4-36.2)
[2021-06-25 09:08] LABS: Alanine Aminotransferase 58 IU/L (<50); Alkaline Phosphatase 182 U/L (38-126); Aspartate Aminotransferase 181 IU/L (17-59); BUN Creatinine Ratio 13.6 (6-22); Bilirubin Total 4.4 mg/dL (0.2-1.3); Blood Urea Nitrogen 11 mg/dL (9-20); Calcium 9.7 mg/dL (8.4-10.2); Carbon Dioxide 23 mmol/L (22-32); Chloride 104 mmol/L (98-107); Estimated Glomerular Filt Rate > 60.0 mL/min (>60); Glucose 102 mg/dL (70-100); HEMOLYSIS < 15 (0-50); Potassium 4.2 mmol/L (3.4-5.1); Sodium 137 mmol/L (137-145)
[2021-06-25 09:33] LABS: TSH w/ Reflex to FT4 5.85 uIU/mL (0.47-4.68)
[2021-06-25 09:56] LABS: Vitamin B12 444 pg/mL (239-931)
[2021-06-25 10:01] LABS: Free T4, Direct Thyroxine 1.98 ng/dL (0.78-2.19)
[2021-06-25 21:06] LABS: Alpha Fetoprotein 3.2 ng/mL (0.0-8.3)
== END ==
PROVIDERS: PCP Family Medicine; Referring Provider Family Medicine; Visit Provider Family Medicine
DX: N19 Unspecified kidney failure (principal); K70.40 Alcoholic hepatic failure without coma; E87.1 Hypo-osmolality and hyponatremia; I85.00 Esophageal varices without bleeding; D64.9 Anemia, unspecified; E80.6 Other disorders of bilirubin metabolism; K74.60 Unspecified cirrhosis of liver
CPT/HCPCS: 36415; 80053; 82105; 82140; 82607; 84439; 84443; 85025; 85610; 85730

== ENCOUNTER → 2021-08-21 07:11 | Outpatient (CLI) | payer OTHER, SELFPAY ==
[2021-08-21 08:02] LABS: HEMOLYSIS < 15 (0-50); Iron 36 ug/dL (49-181)
[2021-08-21 08:13] LABS: Percent Iron Saturation 8 % (20-50); Total Iron Binding Capacity 459 ug/dL (261-462); Transferrin 368 mg/dL (206-381)
[2021-08-21 16:32] LABS: Hep C Virus Ab w/Reflex Quant NEGATIVE s/c (NEGATIVE); Hepatitis B Surface Antigen NEGATIVE s/c (NEGATIVE)
[2021-08-22 00:48] LABS: Hepatitis B Core Antibody Negative (Negative); Hepatitis B Surf AB Quant 247.9 mIU/mL (Immunity>9.9)
[2021-08-22 03:00] LABS: Ceruloplasmin 38.2 mg/dL (16.0-31.0); Immunoglobulin G, Quantitative 1512 mg/dL (603-1613); Immunoglobulin M, Quantitative 90 mg/dL (20-172)
[2021-08-23 16:42] LABS: ANA Screen, IFA Negative (.)
[2021-08-24 14:25] LABS: Anti Mitochondrial ABY IGG <20.0 Units (0.0-20.0)
== END ==
PROVIDERS: PCP Family Medicine; Referring Provider Internal Medicine Gastroenterology; Visit Provider Internal Medicine Gastroenterology
DX: I85.00 Esophageal varices without bleeding (principal); K70.30 Alcoholic cirrhosis of liver without ascites
CPT/HCPCS: 36415; 82103; 82104; 82390; 82784; 83516; 83540; 83550; 86038; 86376; 86704; 86706; 86803; 87340

== ENCOUNTER → 2021-08-22 11:09 | Outpatient (CLI) | payer OTHER, SELFPAY ==
[2021-08-22 12:36] LABS: COVID19 -Nasal RAPID Negative (Negative)
== END ==
PROVIDERS: PCP Family Medicine; Visit Provider Family Medicine Sleep Medicine
DX: Z20.822 Contact with and (suspected) exposure to COVID-19 (principal)
CPT/HCPCS: 87635; C9803

== ENCOUNTER 2021-08-25 07:03 | Day surgery (SDC) | payer OTHER, SELFPAY ==
[2021-08-25] VITALS (7 sets, daily range): BP systolic 97–117; BP diastolic 47–75; PULSE 62–79; RESP 11–16; TEMP 36–36.5; O2SAT 91–100; BMI 34.5
[2021-08-25] MEDS: SODIUM CHLORIDE 0.9% 1,000 ML 84 ML IV (07:33)
--- NOTE | 2021-08-25 07:54 | PM.PREOP ---
Pre-operative Note COVID-19 COVID-19 status: Negative Result date/Date tested (Pos, Neg/Pending): 08/22/21 Criteria for continued procedure: Possibility delay results in more complex future surgery or treatment Interval Note History & Physical reviewed/Exam performed by Physician: Yes Changes to H&P: No ASA Class (for procedural sedation): II
--- NOTE | 2021-08-25 08:00 | PM.HP.1 ---
History of Present Illness History of Present Illness Date Patient Seen: 08/25/21 Time Patient Seen: 08:00 Chief complaint: SDC Narrative: History of esophageal varices and banding here for surveillance. Patient History Medical History Abdominal ascites Cirrhosis Esophageal varices Family history of heart disease in male family member before age 55 Family history of hypothyroidism Fatigue Hypertriglyceridemia without hypercholesterolemia Jaundice Megaloblastic anemia due to alcoholism Weight gain Family & Social History Family History Father Hypertension Hyperlipidemia CAD (coronary artery disease) of artery bypass graft Mother Hypothyroid Social History: household members spouse Tobacco & Substance use: Smoking Status Current every day smoker alcohol intake former alcohol intake frequency 0-2 drinks per day Substance Use Type does not use Meds Home Medications and Allergies Home Medications Medication Instructions Recorded Confirmed Type fluoxetine 20 mg capsule See Rx Instructions .ROUTE 06/19/21 08/25/21 Rx .COMPLEX #90 cap spironolactone 50 mg tablet 50 mg PO DAILY #90 tab 06/19/21 08/25/21 Rx furosemide 20 mg tablet (Lasix) 40 mg PO DAILY #120 tab 07/18/21 08/25/21 Rx rifaximin 550 mg tablet 550 mg PO BID #90 tab 07/18/21 08/25/21 Rx ascorbic acid (vitamin C) 250 mg 500 mg PO DAILY #90 tab 07/28/21 08/25/21 Rx tablet ferrous sulfate 325 mg (65 mg See Rx Instructions .ROUTE 07/28/21 08/25/21 Rx iron) tablet (FeroSul) .COMPLEX #90 tab lactulose 10 gram/15 mL oral 10 g (15 mL) PO DAILY #946 ml 07/28/21 08/25/21 Rx solution pantoprazole 40 mg tablet,delayed 40 mg PO DAILY #90 tab 08/04/21 08/25/21 Rx release Allergies Allergy/AdvReac Type Severity Reaction Status Date / Time No Known Drug Allergies Allergy Verified 08/25/21 07:14 Review of Systems Review of Systems ROS: Yes All systems reviewed with the patient and are negative except as otherwise documented Exam Vital Signs (past 8 hours): - 08/25/21 07:17 Temperature 97 F L Pulse Rate 64 Respiratory Rate 16 Blood Pressure 112/66 Pulse Oximetry 95 Oxygen Delivery Method Room Air Const General: cooperative and comfortable Orientation: alert HENMT Head: normocephalic Ears: external ears normal Nose: external nose normal Face and sinus: normal facial exam Mouth: oral mucosae normal Eyes General: appearance normal, both eyes and all related structures Neck Neck: normal visual inspection Chest Chest: normal inspection of the chest Resp Effort & Inspection: normal respiratory effort Cardio Rate: regular rate GI Inspection: normal to inspection Skin General: no rashes or lesions noted and No jaundice Neuro General: patient alert and moves all extremities Cognition: normal cognition Speech: speech normal Extrem General: no pedal edema Psych Appearance: grossly normal Assessment & Plan Assessment & Plan narrative: 31-year-old male with cirrhosis and esophageal varices status post banding. The is here for surveillance. EGD is planned for today. Time Spent With Patient Critical Care time: I spent a total of [] minutes of critical care time on this patient's care today; this time is exclusive of procedural time.
--- NOTE | 2021-08-25 08:27 | P.OP.EGD_ITS ---
Operative Date/Time/Diagnoses Date of procedure: 08/25/21 Time of procedure: 08:27 Pre-op diagnosis: Cirrhosis with esophageal varices and prior banding. Here for surveillance. Post-op diagnosis: same Procedure & Clinicians Study performed: Esophagogastroduodenoscopies with banding Same procedure as scheduled: Yes Indications: Esophageal varices with banding here for surveillance Surgeon: Navin Ceballos Procedure Notes SCOAP/Timeout: Done Procedure in detail: After the risks and benefits were explained, written and verbal informed consent was obtained. The patient was brought into the procedure room and placed into the left lateral decubitus position. Please see nurse fourdrinier machine tender notes for sedation details. The scope was introduced into the mouth through the bite block and advanced under direct visualization to the 2nd portion of the duodenum. The scope was slowly withdrawn carefully examining the mucosa for any defects or lesions. Retroflexed views were accomplished in the stomach. The stomach was decompressed, the scope was then removed from the patient who tolerated the procedure well. Sedation minutes: 20 Specimen(s): none sent Complications: none Impression: 1. Duodenum: This appeared visually unremarkable from the bulb through the 2nd portion. There was some food debris that was irrigated and suctioned away. 2. Stomach: No ulcers no outlet obstruction no mass lesions. No varices appreciated. Diffuse portal gastropathy was noted. There was a moderate amount of semi solid and semi liquid food debris requiring copious irrigation and suction. The appearance suggested either noncompliance with NPO requirements or an element of mild gastroparesis. 3. Esophagus: The squamocolumnar junction correlated with the top of the gastric folds. The GEJ was at about 40 cm from the incisors. The patient had LA grade B erosive esophagitis. There were at least a couple of variceal questions in the distal esophagus that appeared to warrant further banding. Varices were greater than 5 mm in greatest dimension in these 2 columns. Two bands were placed within the distal 5 cm of the esophagus. The remainder did not appear to be in need of band application. The 1st band was placed was in an area that involved a touch of esophagitis and with application of the band, blood was extruded through the eroded portion of the esophagus over the varix. No sustained bleeding was identified. Endoscopic diagnosis 1. Esophageal varices (large) status post banding x2 2. LA grade B erosive esophagitis 3. Portal gastropathy Post-procedure Plan for aftercare: 1. Close clinic follow-up for discussion of the pros and cons of adding on beta- sidney therapy 2. Compliance with pantoprazole is important. 3. Repeat EGD in 4 weeks 4. Liquid diet over the next 24 hours advancing to soft over the next 72 hours. Disposition: PACU
== END 2021-08-25 09:12 | disposition home or self-care (01) ==
PROVIDERS: PCP Family Medicine; Referring Provider Internal Medicine Gastroenterology; Visit Provider Internal Medicine Gastroenterology
PROC: 0DJ08ZZ Inspection of Upper Intestinal Tract, Via Natural or Artificial Opening Endoscopic (ICD-10-PCS; CPT 43235; principal; 2021-08-25 08:00)
DX: K70.30 Alcoholic cirrhosis of liver without ascites (principal); I85.10 Secondary esophageal varices without bleeding; F10.11 Alcohol abuse, in remission; K20.80 Other esophagitis without bleeding; K31.89 Other diseases of stomach and duodenum
CPT/HCPCS: 43244; J2704

== ENCOUNTER → 2021-10-24 15:08 | Outpatient (CLI) | payer OTHER, SELFPAY ==
[2021-10-24 15:55] LABS: Add Manual Diff / Slide Review NO; Basophils Absolute Auto 0 /uL (0-100); Basophils Percent Auto 0.5 % (0-2); Eosinophils Absolute Auto 200 /uL (0-450); Eosinophils Percent Auto 2.5 % (2-4); Hematocrit 39.7 % (41-53); Hemoglobin 13.4 g/dL (13.5-17.5); Lymphocytes Absolute Auto 1800 /uL (1100-4500); Lymphocytes Percent Auto 20.2 % (25-40); Mean Corpuscular HGB Conc 33.8 % (30-36); Mean Corpuscular Hemoglobin 29.7 PG (26-34); Mean Corpuscular Volume 87.9 fL (80-100); Monocytes Absolute Auto 600 /uL (0-900); Monocytes Percent Auto 7.3 % (3-14); Neutrophils Absolute Auto 6100 /uL (1500-7000); Neutrophils Percent Auto 69.5 % (50-75); Platelet Count 138 X10^3/uL (150-400); Red Blood Cell Count 4.52 X10^6/uL (4.5-5.9); White Blood Cell Count 8.8 X10^3/uL (4.5-11.0)
[2021-10-24 16:06] LABS: INR 1.3 (0.9-1.3); Prothrombin Time 14.2 SECONDS (10.1-12.7)
[2021-10-24 16:16] LABS: Alanine Aminotransferase 78 IU/L (<50); Albumin 4.3 g/dL (3.5-5.0); Albumin Globulin Ratio 1.2 (1.0-2.8); Alkaline Phosphatase 157 U/L (38-126); Aspartate Aminotransferase 56 IU/L (17-59); BUN Creatinine Ratio 25.4 (6-22); Bilirubin Total 0.6 mg/dL (0.2-1.3); Blood Urea Nitrogen 17 mg/dL (9-20); Calcium 9.2 mg/dL (8.4-10.2); Carbon Dioxide 25 mmol/L (22-32); Chloride 104 mmol/L (98-107); Estimated Glomerular Filt Rate > 60 mL/min (>60); Globulin 3.7 g/dL (1.7-4.1); Glucose 109 mg/dL (70-100); HEMOLYSIS < 15 (0-50); Potassium 3.9 mmol/L (3.4-5.1); Sodium 139 mmol/L (137-145)
[2021-10-24 16:49] LABS: Ferritin 32 ng/mL (18-464)
[2021-10-24 18:36] LABS: HEMOLYSIS < 15 (0-50); Iron 82 ug/dL (49-181)
[2021-10-24 18:44] LABS: Total Iron Binding Capacity 419 ug/dL (261-462)
[2021-10-24 18:46] LABS: Percent Iron Saturation 20 % (20-50); Total Iron Binding Capacity 417 ug/dL (261-462); Transferrin 296 mg/dL (206-381)
[2021-10-24 19:07] LABS: TSH w/ Reflex to FT4 1.46 uIU/mL (0.47-4.68)
[2021-10-25 06:31] LABS: Alpha Fetoprotein 1.2 ng/mL (0.0-6.9); Ceruloplasmin 33.5 mg/dL (16.0-31.0)
== END ==
PROVIDERS: PCP Family Medicine; Referring Provider Internal Medicine Gastroenterology; Visit Provider Internal Medicine Gastroenterology
DX: I85.00 Esophageal varices without bleeding (principal); K70.30 Alcoholic cirrhosis of liver without ascites; D50.9 Iron deficiency anemia, unspecified; D53.1 Other megaloblastic anemias, not elsewhere classified; I85.10 Secondary esophageal varices without bleeding
CPT/HCPCS: 36415; 80053; 82105; 82390; 82728; 83540; 83550; 84443; 85025; 85610

== ENCOUNTER → 2021-10-28 07:19 | Outpatient (CLI) | payer OTHER, SELFPAY ==
[2021-11-05 10:31] LABS: Copper/Creatinine 18
[2021-11-05 10:32] LABS: Creatinine, Urine 0.56
[2021-11-05 10:33] LABS: Copper, Urine 10
== END ==
PROVIDERS: PCP Family Medicine; Referring Provider Internal Medicine Gastroenterology; Visit Provider Internal Medicine Gastroenterology
DX: I85.00 Esophageal varices without bleeding (principal); K70.30 Alcoholic cirrhosis of liver without ascites
CPT/HCPCS: 82525; 82570

== ENCOUNTER → 2021-11-25 09:03 | Outpatient (CLI) | payer OTHER, SELFPAY ==
[2021-11-25 10:21] LABS: COVID19 -Nasal RAPID Negative (Negative)
== END ==
PROVIDERS: PCP Family Medicine; Visit Provider Surgery
DX: Z20.822 Contact with and (suspected) exposure to COVID-19 (principal); Z01.812 Encounter for preprocedural laboratory examination
CPT/HCPCS: 87635; C9803

== ENCOUNTER 2021-11-26 08:26 | Day surgery (SDC) | payer OTHER, SELFPAY ==
[2021-11-26 08:44] VITALS: BP 125/82; PULSE 68; RESP 18; TEMP 36.4; O2SAT 97
[2021-11-26 08:45] VITALS: BMI 32.5
[2021-11-26] MEDS: SODIUM CHLORIDE 0.9% 1,000 ML 84 ML IV (09:04)
--- NOTE | 2021-11-26 09:13 | PM.HP.1 ---
History of Present Illness History of Present Illness Date Patient Seen: 11/26/21 Time Patient Seen: 09:13 Chief complaint: SDC Narrative: I reviewed my note from October 21. No significant changes. Unfortunately the patient has not started the nadolol dose yet. Patient History Medical History Abdominal ascites Cirrhosis Esophageal varices Family history of heart disease in male family member before age 55 Family history of hypothyroidism Fatigue Hypertriglyceridemia without hypercholesterolemia Jaundice Megaloblastic anemia due to alcoholism Weight gain Family & Social History Family History Father Hypertension Hyperlipidemia CAD (coronary artery disease) of artery bypass graft Mother Hypothyroid Social History: household members spouse Tobacco & Substance use: Tobacco type e-cigarettes Smoking Status Current every day smoker alcohol intake former alcohol intake frequency 0-2 drinks per day Substance Use Type does not use Meds Home Medications and Allergies Home Medications Medication Instructions Recorded Confirmed Type fluoxetine 20 mg capsule See Rx Instructions .Route 06/19/21 11/26/21 Rx .COMPLEX #90 caps spironolactone 50 mg tablet 50 mg PO DAILY #90 tabs 06/19/21 11/26/21 Rx furosemide 20 mg tablet (Lasix) 40 mg PO DAILY #120 tabs 07/18/21 11/26/21 Rx ascorbic acid (vitamin C) 250 mg 500 mg PO DAILY #90 tabs 07/28/21 11/26/21 Rx tablet ferrous sulfate 325 mg (65 mg See Rx Instructions .Route 07/28/21 11/26/21 Rx iron) tablet (FeroSul) .COMPLEX #90 tabs lactulose 10 gram/15 mL oral 10 g (15 mL) PO DAILY #946 mL 07/28/21 11/26/21 Rx solution pantoprazole 40 mg tablet,delayed 40 mg PO DAILY #90 tabs 09/16/21 11/26/21 Rx release Allergies Allergy/AdvReac Type Severity Reaction Status Date / Time No Known Drug Allergies Allergy Verified 11/26/21 08:41 Review of Systems Review of Systems ROS: Yes All systems reviewed with the patient and are negative except as otherwise documented Exam Vital Signs (past 8 hours): - 11/26/21 08:44 Temperature 97.5 F L Pulse Rate 68 Respiratory Rate 18 Blood Pressure 125/82 Pulse Oximetry 97 Oxygen Delivery Method Room Air Oxygen Delivery Method Room Air Const General: cooperative HENMT Head: normal to inspection Eyes General: appearance normal, both eyes and all related structures Neck Neck: normal visual inspection Chest Chest: normal inspection of the chest Resp Effort & Inspection: normal respiratory effort Cardio Rate: regular rate GI Inspection: normal to inspection Skin General: no rashes or lesions noted Neuro General: patient alert and patient awake Extrem General: normal to inspection and no pedal edema Psych Appearance: grossly normal Assessment & Plan Assessment & Plan narrative: 31-year-old with cirrhosis and varices here for surveillance. EGD with possible banding is planned for today. Time Spent With Patient Critical Care time: I spent a total of [] minutes of critical care time on this patient's care today; this time is exclusive of procedural time.
--- NOTE | 2021-11-26 09:15 | PM.PREOP ---
Pre-operative Note COVID-19 COVID-19 status: Negative Result date/Date tested (Pos, Neg/Pending): 11/25/21 Criteria for continued procedure: Possibility delay results in more complex future surgery or treatment Interval Note History & Physical reviewed/Exam performed by Physician: Yes Changes to H&P: No ASA Class (for procedural sedation): II
--- NOTE | 2021-11-26 10:00 | PM.OP.EGD ---
Operative Date/Time/Diagnoses Date of procedure: 11/26/21 Time of procedure: 10:00 Pre-op diagnosis: Esophageal varices Post-op diagnosis: same Procedure & Clinicians Study performed: EGD Same procedure as scheduled: Yes Indications: Esophageal varices Surgeon: Navin Ceballos Procedure Notes SCOAP/Timeout: Done Procedure in detail: After the risks and benefits were explained, written and verbal informed consent was obtained. The patient was brought into the procedure room and placed into the left lateral decubitus position. Please see nurse money room teller notes for sedation details. The scope was introduced into the mouth through the bite block and advanced under direct visualization to the 2nd portion of the duodenum. The scope was slowly withdrawn carefully examining the mucosa for any defects or lesions. Retroflexed views were accomplished in the stomach. The stomach was decompressed, the scope was then removed from the patient who tolerated the procedure well. Sedation minutes: 5 Specimen(s): none sent Complications: none Impression: 1. Duodenum: No significant pathology from the bulb through the 2nd portion. 2. Stomach: Portal hypertensive gastropathy is noted mild nonerosive nodularity noted in the antrum. No gastric varices were identified including retroflexed views of the LES. 3. Esophagus: The squamocolumnar junction correlated with the top of the gastric folds. GEJ was at about 38 cm from the incisors.. Previously identified esophagitis has completely healed. Variceal cushions would be considered small and end nearly completely flattened out with air insufflation. No stigmata of recent bleeding no high-risk areas. Photographs were taken. Visually these did not appear to warrant further application of bands at this time. Endoscopic diagnosis 1. Portal gastropathy 2. Small distal esophageal varices without stigmata or high-risk features Post-procedure Plan for aftercare: 1. Patient is again encouraged to initiate nadolol as discussed in clinic. 2. Repeat EGD for surveillance to confirm sufficient variceal obliteration at 6 months time. Disposition: PACU
[2021-11-26 10:05] VITALS: BP 92/63; PULSE 83; RESP 18; TEMP 36.3; O2SAT 98
[2021-11-26 10:10] VITALS: BP 111/67; PULSE 78; RESP 13; O2SAT 97
[2021-11-26 10:15] VITALS: BP 119/77; PULSE 70; RESP 13; O2SAT 99
[2021-11-26 10:20] VITALS: BP 117/82; PULSE 73; RESP 16; TEMP 36.5; O2SAT 99
[2021-11-26 10:28] VITALS: BP 116/85; PULSE 69; RESP 16; O2SAT 100
== END 2021-11-26 10:43 | disposition home or self-care (01) ==
PROVIDERS: PCP Family Medicine; Referring Provider Internal Medicine Gastroenterology; Visit Provider Internal Medicine Gastroenterology
PROC: 0DJ08ZZ Inspection of Upper Intestinal Tract, Via Natural or Artificial Opening Endoscopic (ICD-10-PCS; CPT 43235; principal; 2021-11-26 09:30)
DX: I85.00 Esophageal varices without bleeding (principal); K70.30 Alcoholic cirrhosis of liver without ascites; F10.21 Alcohol dependence, in remission; K76.6 Portal hypertension; K31.89 Other diseases of stomach and duodenum
CPT/HCPCS: 43235; J2704

== ENCOUNTER → 2022-01-12 08:13 | Outpatient (CLI) | payer OTHER, SELFPAY ==
[2022-01-12 08:57] LABS: Add Manual Diff / Slide Review NO; Basophils Absolute Auto 0 /uL (0-100); Basophils Percent Auto 0.5 % (0-2); Eosinophils Absolute Auto 200 /uL (0-450); Eosinophils Percent Auto 2.7 % (2-4); Hematocrit 42.6 % (41-53); Hemoglobin 14.5 g/dL (13.5-17.5); Lymphocytes Absolute Auto 1600 /uL (1100-4500); Lymphocytes Percent Auto 20.9 % (25-40); Mean Corpuscular HGB Conc 33.9 % (30-36); Mean Corpuscular Hemoglobin 30.9 PG (26-34); Mean Corpuscular Volume 90.9 fL (80-100); Monocytes Absolute Auto 600 /uL (0-900); Monocytes Percent Auto 7.3 % (3-14); Neutrophils Absolute Auto 5300 /uL (1500-7000); Neutrophils Percent Auto 68.6 % (50-75); Platelet Count 112 X10^3/uL (150-400); Red Blood Cell Count 4.69 X10^6/uL (4.5-5.9); Red Cell Distribution Width 14.2 % (11.6-14.8); White Blood Cell Count 7.7 X10^3/uL (4.5-11.0)
[2022-01-12 09:09] LABS: INR 1.2 (0.9-1.3); Prothrombin Time 13.9 SECONDS (10.1-12.7)
[2022-01-12 09:11] LABS: PTT Partial Thromboplastin Tim 46 SECONDS (26-36)
[2022-01-12 09:26] LABS: Alanine Aminotransferase 45 IU/L (<50); Albumin 4.2 g/dL (3.5-5.0); Albumin Globulin Ratio 1.6 (1.0-2.8); Alkaline Phosphatase 112 U/L (38-126); Aspartate Aminotransferase 34 IU/L (17-59); Bilirubin Total 0.6 mg/dL (0.2-1.3); Bilirubin Unconjugated 0.4 mg/dL (0.0-1.1); Globulin 2.7 g/dL (1.7-4.1); HEMOLYSIS < 15 (0-50); Total Protein 6.9 g/dL (6.3-8.2)
[2022-01-13 15:59] LABS: IgG Subclass 1 600 mg/dL (248-810); IgG Subclass 2 268 mg/dL (130-555); IgG Subclass 3 141 mg/dL (15-102); IgG Subclass 4 17 mg/dL (2-96); IgG Total 1031 mg/dL (603-1613)
[2022-01-14 13:59] LABS: Cytoplasmic C-ANCA <1:20 titer (Neg:<1:20); Perinuclear P-ANCA <1:20 titer (Neg:<1:20)
== END ==
PROVIDERS: PCP Family Medicine; Referring Provider Internal Medicine Gastroenterology; Visit Provider Internal Medicine Gastroenterology
DX: K70.30 Alcoholic cirrhosis of liver without ascites (principal)
CPT/HCPCS: 36415; 80076; 82784; 82787; 85025; 85610; 85730; 86256

== ENCOUNTER 2022-01-15 07:54 | Outpatient (CLI) | payer OTHER, SELFPAY ==
[2022-01-15] VITALS (14 sets, daily range): BP systolic 111–142; BP diastolic 61–84; PULSE 57–651; RESP 6–18; TEMP 36.3–36.4; O2SAT 99–100; BMI 33.9
--- NOTE | 2022-01-15 | DI.US.S_ITS ---
PROCEDURE: US BIOPSY LIVER Ultrasound-guided liver biopsy with sedation analgesia for 0 minutes. INDICATIONS: LIVER BIOPSY TECHNIQUE: The indications, alternatives, benefits, risks, and complications of the procedure were explained to the patient. Written informed consent was obtained and placed in the chart. Continuous EKG and hemodynamic monitoring was started by trained personnel. Real-time sonography was utilized to choose the site for percutaneous hepatic biopsy. The skin was prepped and draped in the usual sterile fashion. 1% lidocaine was infiltrated down to the hepatic capsule. A coaxial needle was then advanced into the liver under direct sonographic visualization. A biopsy apparatus was then utilized, and core biopsies were obtained. The needle was then withdrawn; a bandage and overlying weight were applied to the biopsy site. COMPARISON: [facility], CT, CT KIDNEY URETER BLADDER (KUB), 06/09/2021, 17:31. [facility], CT, CT ABDOMEN PELVIS W CON, 04/08/2021, 1:49. [facility], US, US ABDOMEN COMPLETE, 06/09/2021, 15:58. FINDINGS: Biopsy site(s): Liver (left lobe) Needle: Kikno biopsy needle set. Number of passes: 3 Medications: 1% lidocaine for local anaesthesia. IV Versed and Fentanyl for conscious sedation for 0 minutes (see nursing record). Complications: None. IMPRESSION: Successful ultrasound-guided liver biopsy, with pathology results pending. Dictated by: Sebastian Larry M.D. on 01/15/2022 at 13:33 Approved by: Sebastian Larry M.D. on 01/15/2022 at 13:34
--- NOTE | 2022-01-15 | PATH_ITS ---
[facility] Accession Number: [id number] . 01 Material submitted: . liver - LIVER BIOPSY . 01 Clinical history: . ALCOHOLIC CIRRHOSIS OF LIVER WITHOUT ASCITES . 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 Please see comment. [facility] 01/20/2022 1606 Local . 01 Comment: Sections are of liver parenchyma with mild mixed portal inflammation involving essentially all sampled portal tracts, predominantly consisting of lymphocytes. Scattered neutrophils and eosinophils are also seen. Plasma cells are inconspicuous. Bile ductular reaction is seen in numerous portal tracks. There is no significant steatosis. Scattered lobular neutrophils are present. Diffuse bridging cirrhosis with a few regenerative nodules consistent with cirrhosis are seen on trichrome stain. A PAS stain with diastase is negative for the intra-hepatocytic globules of alpha 1 antitrypsin deficiency. There is no iron deposition seen on iron stain. A reticulin stain highlights an intact reticulin meshwork. The overall features are consistent with the nonspecific findings of end-stage liver disease. The findings are compatible with the clinical history of alcohol-induced cirrhosis. That said, other etiologies (such as infectious) should be excluded clinically. . As part of routine quality assurance monitor final, Dr. Burch has reviewed this case and agrees with the diagnosis of cirrhosis. . 01 Electronically signed: . Aris Dill MD, PhD, Pathologist NPI- [id number] . 01 Gross description: . LIVER BIOPSY: Received in formalin are 4 fragment(s) of ramsey, soft tissue measuring 0.5 x 0.1 x 0.1 cm to 1.8 x 0.1 x 0.1 cm submitted entirely in 1 cassette(s) /VIOLET 01/16/2022 0045 Local . 01 Pathologist provided ICD-10: K70.30 . 01 CPT . 575265, 809238, 550627, 900728, 555557 Specimen Comment: A courtesy copy of this report has been sent to [phone] Performed at: 01 [facility] [address] [place] [address], [place], [place] [id number] MD Tyson Burch MD Phone: [phone]
[2022-01-15 08:35] LABS: Add Manual Diff / Slide Review NO; Basophils Absolute Auto 100 /uL (0-100); Basophils Percent Auto 0.7 % (0-2); Eosinophils Absolute Auto 200 /uL (0-450); Eosinophils Percent Auto 2.5 % (2-4); Hematocrit 42.9 % (41-53); Hemoglobin 14.4 g/dL (13.5-17.5); Lymphocytes Absolute Auto 1600 /uL (1100-4500); Lymphocytes Percent Auto 20.3 % (25-40); Mean Corpuscular HGB Conc 33.5 % (30-36); Mean Corpuscular Hemoglobin 30.5 PG (26-34); Mean Corpuscular Volume 91.1 fL (80-100); Monocytes Absolute Auto 700 /uL (0-900); Monocytes Percent Auto 9.5 % (3-14); Neutrophils Absolute Auto 5200 /uL (1500-7000); Platelet Count 122 X10^3/uL (150-400); Red Blood Cell Count 4.71 X10^6/uL (4.5-5.9); Red Cell Distribution Width 13.8 % (11.6-14.8); White Blood Cell Count 7.7 X10^3/uL (4.5-11.0)
[2022-01-15 08:48] LABS: INR 1.2 (0.9-1.3); Prothrombin Time 14.2 SECONDS (10.1-12.7)
[2022-01-15 08:51] LABS: PTT Partial Thromboplastin Tim 47 SECONDS (26-36)
--- NOTE | 2022-01-15 09:22 | SUR.PREOP ---
01/15/22-:20s- off unit for procedure.
--- NOTE | 2022-01-15 10:23 | SUR.PHASEII ---
1000. Received pt from DI post liver bx. Insertion site D&I, no swelling or bleeding noted. Sandbag in place. HCT ordered for 1250 and lunch ordered. No complaints voiced. SR up x 2 with call light in reach. sipping water.
[2022-01-15 13:00] LABS: Hematocrit 42.8 % (41-53)
== END 2022-01-15 14:00 | disposition home or self-care (01) ==
PROVIDERS: Specialist; PCP Family Medicine; Referring Provider Internal Medicine Gastroenterology; Visit Provider Internal Medicine Gastroenterology
DX: K70.30 Alcoholic cirrhosis of liver without ascites (principal); K70.10 Alcoholic hepatitis without ascites
CPT/HCPCS: 36415; 47000; 76942; 85014; 85025; 85610; 85730

== ENCOUNTER → 2022-04-27 07:43 | Outpatient (CLI) | payer OTHER, SELFPAY ==
[2022-04-27 09:59] LABS: Alanine Aminotransferase 60 IU/L (<50); Albumin 4.4 g/dL (3.5-5.0); Albumin Globulin Ratio 1.6 (1.0-2.8); Alkaline Phosphatase 104 U/L (38-126); Aspartate Aminotransferase 33 IU/L (17-59); Bilirubin Total 0.5 mg/dL (0.2-1.3); Bilirubin Unconjugated 0.5 mg/dL (0.0-1.1); Globulin 2.8 g/dL (1.7-4.1); HEMOLYSIS < 15 (0-50); Total Protein 7.2 g/dL (6.3-8.2)
== END ==
PROVIDERS: PCP Family Medicine; Referring Provider Internal Medicine Gastroenterology; Visit Provider Internal Medicine Gastroenterology
DX: I85.00 Esophageal varices without bleeding (principal); K70.30 Alcoholic cirrhosis of liver without ascites
CPT/HCPCS: 36415; 80076

== ENCOUNTER → 2022-05-06 11:37 | Outpatient (CLI) | payer OTHER, SELFPAY ==
[2022-05-06 12:24] LABS: COVID19 -Nasal RAPID Negative (Negative)
== END ==
PROVIDERS: PCP Family Medicine; Visit Provider Surgery
DX: Z01.812 Encounter for preprocedural laboratory examination (principal); Z20.822 Contact with and (suspected) exposure to COVID-19
CPT/HCPCS: 87635

== ENCOUNTER 2022-05-06 12:55 | Day surgery (SDC) | payer OTHER, SELFPAY ==
[2022-05-06 13:07] VITALS: BP 130/83; PULSE 67; RESP 14; TEMP 36.6; O2SAT 97; BMI 33.9
[2022-05-06] MEDS: LACTATED RINGERS 1,000 ML 84 ML IV (13:19)
--- NOTE | 2022-05-06 13:47 | PM.HP.1 ---
History of Present Illness History of Present Illness Date Patient Seen: 05/06/22 Time Patient Seen: 13:48 Chief complaint: EGD Narrative: Patient is a very pleasant 31-year-old male who presented for upper endoscopy. He does have a personal history of alcoholic hepatitis with esophageal varices. His last upper endoscopy was 11/26/2021. He has required esophageal varices banding in the past. He has been alcohol-free since May 31 2021 Patient History Medical History Abdominal ascites Cirrhosis Esophageal varices Family history of heart disease in male family member before age 55 Family history of hypothyroidism Fatigue Hypertriglyceridemia without hypercholesterolemia Jaundice Megaloblastic anemia due to alcoholism Weight gain Family & Social History Family History Father Hypertension Hyperlipidemia CAD (coronary artery disease) of artery bypass graft Mother Hypothyroid Social History: household members spouse Tobacco & Substance use: Tobacco type e-cigarettes Smoking Status Current every day smoker alcohol intake former alcohol intake frequency 0-2 drinks per day Substance Use Type does not use Meds Home Medications and Allergies Home Medications Medication Instructions Recorded Confirmed Type spironolactone 50 mg tablet 50 mg PO DAILY #90 tabs 06/19/21 05/06/22 Rx pantoprazole 40 mg tablet,delayed 40 mg PO DAILY #90 tabs 09/16/21 05/06/22 Rx release lactulose 10 gram/15 mL oral 10 g (15 mL) PO DAILY #946 mL 12/08/21 05/06/22 Rx solution ascorbic acid (vitamin C) 250 mg 500 mg PO DAILY #90 tabs 01/15/22 05/06/22 Rx tablet ferrous sulfate 325 mg (65 mg See Rx Instructions .Route 01/15/22 05/06/22 Rx iron) tablet (FeroSul) .COMPLEX #90 tabs fluoxetine 20 mg capsule See Rx Instructions .Route 01/15/22 05/06/22 Rx .COMPLEX #90 caps Allergies Allergy/AdvReac Type Severity Reaction Status Date / Time No Known Drug Allergies Allergy Verified 05/06/22 13:20 Review of Systems Review of Systems ROS: Yes All systems reviewed with the patient and are negative except as otherwise documented Exam Vital Signs (past 8 hours): - 05/06/22 13:07 Temperature 97.9 F Pulse Rate 67 Respiratory Rate 14 Blood Pressure 130/83 Pulse Oximetry 97 Oxygen Delivery Method Room Air Oxygen Delivery Method Room Air Const General: cooperative, healthy appearing, comfortable, well developed and No acute distress HENMT Head: normocephalic and atraumatic Resp Effort & Inspection: normal respiratory effort, able to speak in complete sentences and no audible wheezes Auscultation: clear to auscultation bilaterally Cardio Rate: regular rate Rhythm: regular rhythm GI Palpation: soft Assessment & Plan Assessment & Plan narrative: 1. Family history colon cancer-brother 2. History of advanced hyperplastic polyp, last colonoscopy 2016 3. Diarrhea Colonoscopy today, further recommendations to follow Time Spent With Patient Critical Care time: I spent a total of [] minutes of critical care time on this patient's care today; this time is exclusive of procedural time.
--- NOTE | 2022-05-06 14:48 | PM.OP.EGD ---
Operative Date/Time/Diagnoses Date of procedure: 05/06/22 Time of procedure: 14:43 Procedure Notes Procedure in detail: Surgeon: Merna Mckenzie DO Procedure: Esophagogastroduodenoscopy Preoperative diagnosis: 1. Esophageal varices history of esophageal variceal banding last EGD 11/26/21 Postoperative diagnosis: 1. Small esophageal varices flattened with insufflation 2. Mild LA-a esophagitis, not biopsied due to varices 3. Mild portal hypertensive gastropathy 4. Normal-appearing duodenum 5. Otherwise unremarkable upper endoscopy Medications: Monitored anesthesia care Preanesthesia Assessment An H and P was performed/updated and the Px?s ASA class is 2. The procedure was discussed in detail with the patient. The potential risks and complications including infection, bleeding, missed lesions, perforation, need for surgery in case of perforation, prolonged hospital stay, and were explained. A brief question and answer period was allotted and once all questions were answered, informed consent was obtained. The patient was brought back to the procedure room and placed on standard monitoring. The patient?s vital signs were monitored continuously throughout the entire procedure. Prior to starting, a timeout was performed to confirm the patient?s identity, allergies, medications, and procedure. Procedure in detail The patient was placed in left lateral decubitus position and a bite block was inserted. The tip of the upper endoscope was placed into the mouth and advanced without difficulty under direct visualization into the esophagus. Esophagus: Small esophageal varices, flattened with insufflation, no bands were placed LA-a esophagitis in the lower 3rd of the esophagus, this was not biopsied due to presence of varices Stomach: Portal hypertensive gastropathy, mild Duodenum: Normal-appearing duodenum, ampulla was visualized The patient tolerated the procedure well and will be brought back to the recovery area to be discharged once criteria are met. Complications There were no complications and estimated blood loss was minimal. Recommendations: Resume previous diet Continue outPx medications Follow up pathology results Repeat EGD in 1 year Office follow up as previously scheduled An emergency contact number was given to the patient for any complications related to the procedure
[2022-05-06 14:51] VITALS: BP 114/71; PULSE 64; RESP 14; TEMP 36.3; O2SAT 94
[2022-05-06 14:56] VITALS: BP 106/62; PULSE 67; RESP 18; O2SAT 95
[2022-05-06 15:01] VITALS: BP 120/62; PULSE 66; RESP 16; O2SAT 95
[2022-05-06 15:05] VITALS: BP 117/75; PULSE 66; RESP 17; TEMP 36.1; O2SAT 96
[2022-05-06 15:20] VITALS: BP 126/83; PULSE 66; RESP 18; TEMP 36.2; O2SAT 99
== END 2022-05-06 15:33 | disposition home or self-care (01) ==
PROVIDERS: PCP Family Medicine; Referring Provider Student in an Organized Health Care Education/Training Program; Visit Provider Student in an Organized Health Care Education/Training Program
PROC: 0DJ08ZZ Inspection of Upper Intestinal Tract, Via Natural or Artificial Opening Endoscopic (ICD-10-PCS; CPT 43235; principal; 2022-05-06 14:00)
DX: I85.10 Secondary esophageal varices without bleeding (principal); K70.30 Alcoholic cirrhosis of liver without ascites; K20.90 Esophagitis, unspecified without bleeding; K76.6 Portal hypertension; K31.89 Other diseases of stomach and duodenum; Z20.822 Contact with and (suspected) exposure to COVID-19; Z01.812 Encounter for preprocedural laboratory examination
CPT/HCPCS: 43235; 87635; C9803; J2704; J3010

== ENCOUNTER → 2023-01-29 13:05 | Outpatient (CLI) | payer OTHER, SELFPAY ==
[2023-01-29 14:44] LABS: HEMOLYSIS < 15 (0-50); Iron 118 ug/dL (49-181)
[2023-01-29 14:46] LABS: Alanine Aminotransferase 39 IU/L (<50); Albumin 4.5 g/dL (3.5-5.0); Albumin Globulin Ratio 1.7 (1.0-2.8); Alkaline Phosphatase 73 U/L (38-126); Aspartate Aminotransferase 33 IU/L (17-59); BUN Creatinine Ratio 18.8 (6-22); Bilirubin Total 0.8 mg/dL (0.2-1.3); Blood Urea Nitrogen 15 mg/dL (9-20); Calcium 9.3 mg/dL (8.4-10.2); Carbon Dioxide 26 mmol/L (22-32); Chloride 103 mmol/L (98-107); Cholesterol 158 mg/dL (140-199); Estimated Glomerular Filt Rate > 60 mL/min (>60); Globulin 2.6 g/dL (1.7-4.1); Glucose 79 mg/dL (70-100); HDL Cholesterol 41 mg/dL (40-60); HEMOLYSIS < 15 (0-50); LDL Cholesterol Calculated 99 mg/dL (<100); Potassium 4.2 mmol/L (3.4-5.1); Sodium 138 mmol/L (137-145); Total Protein 7.1 g/dL (6.3-8.2); Triglycerides 89 mg/dL (35-150)
[2023-01-29 14:48] LABS: Add Manual Diff / Slide Review NO; Basophils Absolute Auto 0 /uL (0-100); Basophils Percent Auto 0.4 % (0-2); Eosinophils Absolute Auto 200 /uL (0-450); Eosinophils Percent Auto 1.8 % (2-4); Hematocrit 43.5 % (41-53); Lymphocytes Absolute Auto 2200 /uL (1100-4500); Lymphocytes Percent Auto 25.3 % (25-40); Mean Corpuscular HGB Conc 34.6 % (30-36); Mean Corpuscular Hemoglobin 31.1 PG (26-34); Mean Corpuscular Volume 89.9 fL (80-100); Monocytes Absolute Auto 700 /uL (0-900); Monocytes Percent Auto 7.9 % (3-14); Neutrophils Absolute Auto 5700 /uL (1500-7000); Neutrophils Percent Auto 64.6 % (50-75); Platelet Count 106 X10^3/uL (150-400); Red Blood Cell Count 4.83 X10^6/uL (4.5-5.9); Red Cell Distribution Width 12.9 % (11.6-14.8); White Blood Cell Count 8.7 X10^3/uL (4.5-11.0)
[2023-01-29 14:54] LABS: Percent Iron Saturation 29 % (20-50); Total Iron Binding Capacity 401 ug/dL (261-462); Transferrin 296 mg/dL (206-381)
[2023-01-29 15:17] LABS: TSH w/ Reflex to FT4 0.94 uIU/mL (0.47-4.68)
[2023-01-29 15:22] LABS: Ferritin 54 ng/mL (18-464)
[2023-01-29 15:24] LABS: Creatinine Urine Random 211.4 mg/dL
[2023-01-29 15:34] LABS: Microalbumin Urine Random < 0.6 mg/dL (0-1.6)
== END ==
PROVIDERS: PCP Family Medicine; Referring Provider Family Medicine; Visit Provider Family Medicine
DX: E78.1 Pure hyperglyceridemia (principal); I85.00 Esophageal varices without bleeding; K74.60 Unspecified cirrhosis of liver
CPT/HCPCS: 36415; 80053; 80061; 82043; 82570; 82728; 83540; 83550; 84443; 85025

== ENCOUNTER → 2024-05-09 06:57 | Outpatient (CLI) | payer OTHER, SELFPAY ==
[2024-05-09 07:45] LABS: Add Manual Diff / Slide Review NO; Basophils Absolute Auto 0 /uL (0-100); Basophils Percent Auto 0.3 % (0-2); Eosinophils Absolute Auto 200 /uL (0-450); Eosinophils Percent Auto 2.4 % (2-4); Hematocrit 47.4 % (41-53); Hemoglobin 16.1 g/dL (13.5-17.5); Lymphocytes Absolute Auto 1800 /uL (1100-4500); Mean Corpuscular Hemoglobin 30.9 PG (26-34); Mean Corpuscular Volume 90.9 fL (80-100); Monocytes Absolute Auto 800 /uL (0-900); Monocytes Percent Auto 11.9 % (3-14); Neutrophils Absolute Auto 3800 /uL (1500-7000); Neutrophils Percent Auto 58.4 % (50-75); Platelet Count 130 X10^3/uL (150-400); Red Blood Cell Count 5.22 X10^6/uL (4.5-5.9); Red Cell Distribution Width 12.6 % (11.6-14.8); White Blood Cell Count 6.5 X10^3/uL (4.5-11.0)
[2024-05-09 08:18] LABS: Alanine Aminotransferase 35 IU/L (<50); Albumin 4.5 g/dL (3.5-5.0); Albumin Globulin Ratio 1.8 (1.0-2.8); Alkaline Phosphatase 57 U/L (38-126); Aspartate Aminotransferase 34 IU/L (17-59); BUN Creatinine Ratio 18.9 (6-22); Bilirubin Total 0.7 mg/dL (0.2-1.3); Blood Urea Nitrogen 17 mg/dL (9-20); Calcium 9.5 mg/dL (8.4-10.2); Carbon Dioxide 26 mmol/L (22-32); Chloride 104 mmol/L (98-107); Cholesterol 170 mg/dL (140-199); Estimated Glomerular Filt Rate > 60 mL/min (>60); Globulin 2.5 g/dL (1.7-4.1); Glucose 96 mg/dL (70-100); HDL Cholesterol 46 mg/dL (40-60); HEMOLYSIS < 15 (0-50); LDL Cholesterol Calculated 110 mg/dL (<100); Potassium 4.4 mmol/L (3.4-5.1); Sodium 138 mmol/L (137-145); Triglycerides 71 mg/dL (35-150)
[2024-05-09 08:41] LABS: TSH w/ Reflex to FT4 2.05 uIU/mL (0.47-4.68)
[2024-05-09 09:52] LABS: Creatinine Urine Random 106.76 mg/dL
[2024-05-09 09:57] LABS: Microalbumin Urine Random < 0.6 mg/dL (0-1.6)
== END ==
PROVIDERS: PCP Family Medicine; Referring Provider Family Medicine; Visit Provider Family Medicine
DX: K74.60 Unspecified cirrhosis of liver (principal); I85.00 Esophageal varices without bleeding; E78.1 Pure hyperglyceridemia
CPT/HCPCS: 36415; 80053; 80061; 82043; 82570; 84443; 85025